=== PATIENT | female | born 1990 | race Two or more races ===

== ENCOUNTER 2020-09-19 10:40 | Inpatient (IN) | payer SELFPAY ==
[~2020-09-19 10:40] MED LIST: ROCURONIUM BROMIDE INJ 50 MG/5 ML VIAL IV ONE
[2020-09-19] MEDS ORDERED: IPRATROPIUM/ALBUTEROL 0.5-2.5 MG/3 ML AMPUL NEB ONE (11:18)
[2020-09-19] MEDS ORDERED: NORMAL SALINE 1000 ML 1,000 ML IV ONE ×2 (11:19→22:06)
[2020-09-19] MEDS ORDERED: METHYLPREDNISOLONE INJ 125 MG/2 ML SDV IV ONE (11:19)
[2020-09-19] MEDS ORDERED: ALBUTEROL SULFATE 0.083% NEB 2.5 MG/3 ML AMPUL NEB ONE ×3 (11:19→17:30)
[2020-09-19] MEDS ORDERED: VECURONIUM BROMIDE INJ 10 MG VIAL IV ONE (11:49)
[2020-09-19] MEDS ORDERED: NORMAL SALINE INJ/PF 0.9% 10 ML SDV ONE (11:49)
[2020-09-19] MEDS ORDERED: GLYCOPYRROLATE 1 MG/5 ML VIAL ONE (11:49)
--- NOTE | 2020-09-19 12:09 | ER Document Report ---
Entered by YOVANY ANNA SCRIBE 09/19/20 1123 Acting as scribe for:PATRICIA MULLER MD ED Respiratory Problem - General Mode of Arrival: Ambulatory Information source: Patient TRAVEL OUTSIDE OF THE [place] IN LAST 30 DAYS: No - Related Data Home Medications: denies <PATRICIA MULLER - Last Filed: 09/19/20 16:59> <ASHLEY FIGUEROA - Last Filed: 09/20/20 01:00> - General Chief Complaint: Breathing Difficulty Stated Complaint: DIFFICULTY BREATHING Time Seen by Provider: 09/19/20 11:09 Notes: This 30 year old female patient presents to the emergency department today with complaints of wheezing with a cough for the last x2-3 days. Patient reports that her shortness of breath did not begin until today. She has been coughing up yellowish-white sputum. She mentions that she recently took a test and it was positive. Her last menstrual period was in July. (PATRICIA MULLER) - Related Data Allergies/Adverse Reactions: No Known Allergies Allergy (Unverified 04/25/12 03:39) Past Medical History - General Information source: Patient - Social History Smoking Status: Current Some Day Smoker Cigarette use (# per day): Yes Chew tobacco use (# tins/day): No Frequency of alcohol use: None Drug Abuse: None Lives with: Family Family History: Reviewed & Not Pertinent Patient has homicidal ideation: No - Medical History Medical History: Negative Past Surgical History: Reports: Hx Abdominal Surgery, Hx Appendectomy - Immunizations Immunizations up to date: Yes <PATRICIA MULLER - Last Filed: 09/19/20 16:59> Review of Systems - Review of Systems Constitutional: No symptoms reported EENT: No symptoms reported Cardiovascular: No symptoms reported Respiratory: See HPI, Cough, Short of breath, Sputum, Wheezing Gastrointestinal: No symptoms reported Genitourinary: No symptoms reported Female Genitourinary: See HPI, Last menstrual period - July, Musculoskeletal: No symptoms reported Skin: No symptoms reported Hematologic/Lymphatic: No symptoms reported Neurological/Psychological: No symptoms reported -: Yes All other systems reviewed and negative <PATRICIA MULLER - Last Filed: 09/19/20 16:59> Physical Exam <PATRICIA MULLER - Last Filed: 09/19/20 16:59> - Vital signs Vitals: Temp Pulse Resp BP Pulse Ox 97.7 F 110 H 20 127/76 H 92 09/19/20 10:45 09/19/20 10:45 09/19/20 10:45 09/19/20 10:45 09/19/20 10:45 - Notes Notes: Physical Exam: General: Alert, appears quite dyspneic. Able to speak a few words between breaths. HEENT: Normocephalic. Atraumatic. PERRL. Extraocular movements intact. Oropharynx clear. Neck: Supple. Non-tender. Respiratory: Moderate respiratory distress. Audible wheezing. Retracting. Dyspneic. Tachypneic. High-pitched wheezes are noted in the upper lungs bilaterally, with some rhonchi noted in the lower lung sifuentes bilaterally. Cardiovascular: Regular tachycardia rate and rhythm. Abdominal: Normal Inspection. Non-tender. No distension. Normal Bowel Sounds. Back: No gross abnormalities. Extremities: Moves all four extremities. Upper extremities: Normal inspection. Normal ROM. Lower extremities: Normal inspection. No edema. Normal ROM. Neurological: Normal cognition. AAOx4. Normal speech. Psychological: Anxious. Skin: Warm. Dry. Normal color. (PATRICIA MULLER) Course - Laboratory Results Result Diagrams: 09/19/20 12:08 09/19/20 12:08 Critical Laboratory Results Reviewed: Yes Attending or Supervising Physician who Reviewed Labs: PATRICIA MULLER - Leukocytosis - Radiology Results Critical Radiology Results Reviewed: No Critical Results - EKG Interpretation by [place] EKG shows normal: Sinus rhythm, Gibson, Intervals, QRS Complexes, ST-T Waves Rate: Tachycardia - 115 P Waves: CHON - Consults Dr. Torres Time consulted: 15:42 Consulted provider: will come to ER - Requests by discussed the patient with TAPE FASTENER MACHINE OPERATOR station cleaning porter to see if they have any ideas about inducing the patient symptoms. Dr. Oconnell Time consulted: 15:50 Consulted provider: other - Discussed case with Dr. Oconnell, he could not think of anything related this early on that would contribute to the patient's symptoms. - Transfer of Care Care transferred to following provider: Dr. Figueroa <PATRICIA MULLER - Last Filed: 09/19/20 16:59> - Laboratory Results Result Diagrams: 09/19/20 12:08 09/19/20 12:08 <ASHLEY FIGUEROA M - Last Filed: 09/20/20 01:00> - Re-evaluation Re-evalutation: 09/19/20 12:55 The patient was moved from pod for to the main ED due to her symptoms. I reevaluated her and found that her oxygen saturations were remaining at 95% on 2 L nasal cannula. She is some what anxious. There continues to be high-pitched wheezes heard best in the upper airways, and some rhonchi in the lower airways when I have the patient cough. She has had minimal response to DuoNeb and albuterol treatments. I had the nurse give the patient a racemic epinephrine treatment. And after that her heart rate had actually come down from the 110 range to about 95. At this time she remains to be quite anxious, diaphoretic, and is hyperventilating with pursed lips expiratory phase. We will try some Ativan to help her with her anxiety. Chest x-ray does not show acute cardiopulmonary process. 09/19/20 14:39 Patient reports that her breathing feels much better with the BiPAP on. She can notice improvement due to the back pressure it is providing. Oxygen saturations are at 100%. (PATRICIA MULLER) 09/19/20 18:47 Care of this patient has been turned over to me pending admission. In short this is an acutely short of breath 30-year-old female. Dr. Gonzalez and Dr. Torres came to evaluate the patient. They agree that she is an ICU patient. They are concerned that they do not a clear etiology of her symptoms. Decision from them is to order a CTA of the neck. Based on this, I did decide to add a CTA of the chest to evaluate for possible pulmonary embolus as well. On p reliminary evaluation by me, I am concerned about the upper airway in this patient. I am concerned about the possibility of epiglottitis, so antibiotic coverage and cultures are ordered. I did order Unasyn and blood cultures. I went into evaluate the patient. She is anxious appearing but not actively stridorous. She has already received steroids. Awaiting formal report and will reevaluate. 09/19/20 19:49 CT of the neck and chest were read as unremarkable. I did see findings consistent with possible edema at the level of the cords. I discussed this with Dr. Moore. He states that given different times of the breathing cycle, as well as swallowing, this can be a normal appearance. He also states, however, that clinical correlation would be advisable, and it is certainly possible that she has edema direct visualization would be recommended. I did discuss this with the PUPIL PERSONNEL WORKER. The patient and the mother were also kept abreast of findings. We discussed possible intubation and the patient is completely on board. She would like to be intubated is concerned about her difficulty breathing. It is agreed that the patient would be best intubated in the OR in a controlled setting. 09/19/20 21:29 Patient back from the operating room. Per KLARISSA Dumont, cords grossly normal, patient intubated without difficulty. Have ordered sedation. At this point I do not have a clear etiology for this patient's respiratory failure. We will continue to monitor. 09/20/20 00:59 Please see my ED note for the remainder of the patient's ED course and disposition. (ASHLEY FIGUEROA) - Vital Signs Vital signs: Temp Pulse Resp BP Pulse Ox 98.8 F 110 H 16 156/101 H 97 09/19/20 22:30 09/19/20 10:45 09/19/20 22:30 09/19/20 22:30 09/19/20 22:30 - Laboratory Results Laboratory Results Interpreted: 09/19/20 09/19/20 09/19/20 12:08 12:08 16:00 WBC 19.8 H Lymph % (Auto) 10.3 L Absolute Neuts (auto) 16.5 H Seg Neutrophils % 83.5 H Carbonic Acid 1.38 H ABG pH 7.30 L ABG pCO2 46.0 H BUN 6 L Glucose 135 H C-Reactive Protein 59.1 H Beta HCG, Quant 90042.00 H - Radiology Results Radiology Results Interpreted: 09/19/20 12:54 Chest x-ray does not show acute cardiopulmonary process. (PATRICIA MULLER) - Transfer of Care Notes: 09/19/20 16:57 Pending evaluation by the electric dolly operator to decide which service the patient will be admitted to and to decide what bed assignment she will receive. (PATRICIA MULLER) Critical Care Note - Critical Care Note Total time excluding time spent on procedures (mins): 40 <PATRICIA MULLER - Last Filed: 09/19/20 16:59> - Critical Care Note Comments: At least 40 minutes spent evaluating patient, getting history and physical. Instituting therapies and reevaluating for effectiveness of treatment. Time spent consulting with multiple admitting providers for final disposition. (PATRICIA MULLER) Discharge <PATRICIA MULLER - Last Filed: 09/19/20 16:59> - Discharge Admitting Provider: Carlos (Carboy Filler) Unit Admitted: ICU <ASHLEY FIGUEROA - Last Filed: 09/20/20 01:00> - Discharge Clinical Impression: Acute bronchitis with bronchospasm, Tachypnea, Acute hypercapnic respiratory failure Asthmaticus, status Qualifiers: Asthma severity: severe Asthma persistence: persistent Qualified Code(s): J45.52 - Severe persistent asthma with status asthmaticus Condition: Fair Disposition: ADMITTED INPATIENT I personally performed the services described in the documentation, reviewed and edited the documentation which was dictated to the scribe in my presence, and it accurately records my words and actions.
[2020-09-19] MEDS ORDERED: RACEPINEPHRINE HCL 2.25% NEB 0.5 ML AMPUL NEB ONE ×2 (12:10→17:32)
--- NOTE | 2020-09-19 12:17 | RADIOLOGY REPORT (SQ) ---
EXAM DESCRIPTION: CHEST SINGLE VIEW IMAGES COMPLETED DATE/TIME: 09/19/2020 12:05 pm REASON FOR STUDY: Bronchitis with bronchospasm COMPARISON: None. EXAM PARAMETERS: NUMBER OF VIEWS: One view. TECHNIQUE: Single frontal radiographic view of the chest acquired. RADIATION DOSE: NA LIMITATIONS: None. FINDINGS: LUNGS AND PLEURA: No opacities, masses or pneumothorax. No pleural effusion. MEDIASTINUM AND HILAR STRUCTURES: No masses. Contour normal. HEART AND VASCULAR STRUCTURES: Heart normal in size. Normal vasculature. BONES: No acute findings. HARDWARE: None in the chest. OTHER: No other significant finding. IMPRESSION: NO ACUTE RADIOGRAPHIC FINDING IN THE CHEST. TECHNICAL DOCUMENTATION: JOB ID: [id number] 2010 [employer]- All Rights Reserved Reading location - IP/workstation name: [email or web address]
[2020-09-19 12:20] LABS: ABSOLUTE MONOCYTES (AUTO) 0.7 10^3/uL (0.1-1.4); HEMATOCRIT 39.7 % (36.0-47.0); MEAN CORPUSCULAR HEMOGLOBIN 30.6 pg (27.0-33.4); TOTAL CELLS COUNTED % (AUTO) 100 %
[2020-09-19 12:28] LABS: ABSOLUTE BASOPHILS # (AUTO) 0.1 10^3/uL (0.0-0.2); ABSOLUTE EOSINOPHILS # (AUTO) 0.3 10^3/uL (0.0-0.6); ABSOLUTE NEUT (AUTO) 16.5 10^3/uL (1.7-8.2); BASOPHILS % (AUTO) 0.7 % (0-2); EOSINOPHILS % (AUTO) 1.7 % (0-6); HEMOGLOBIN 13.8 g/dL (12.0-15.5); LYMPHOCYTES % (AUTO) 10.3 % (13-45); MEAN CORPUSCULAR HGB CONC 34.7 g/dL (32.0-36.0); MEAN CORPUSCULAR VOLUME 88 fl (80-97); MONOCYTES % (AUTO) 3.8 % (3-13); PLATELET COUNT 303 10^3/uL (150-450); RED CELL DISTRIBUTION WIDTH 13.4 % (11.5-14.0); SEGMENTED NEUTROPHILS % (AUTO) 83.5 % (42-78); WHITE BLOOD COUNT 19.8 10^3/uL (4.0-10.5)
[2020-09-19 12:44] LABS: ALBUMIN 3.8 g/dL (3.5-5.0); ALKALINE PHOSPHATASE 81 U/L (38-126); ANION GAP 10 (5-19); ASPARTATE AMINO TRANSFERASE 23 U/L (14-36); BILIRUBIN,DIRECT 0.3 mg/dL (0.0-0.4); BILIRUBIN,TOTAL 0.9 mg/dL (0.2-1.3); BLOOD UREA NITROGEN 6 mg/dL (7-20); C-REACTIVE PROTEIN 59.1 mg/L (<10.0); CARBON DIOXIDE 24 mmol/L (22-30); CHLORIDE 103 mmol/L (98-107); GLUCOSE 135 mg/dL (75-110); TOTAL PROTEIN 6.5 g/dL (6.3-8.2)
[2020-09-19] MEDS ORDERED: LORAZEPAM INJ 2 MG/1 ML VIAL IV ONE ×2 (12:53→18:58)
[2020-09-19] MEDS ORDERED: MAGNESIUM SULFATE/D5W 1 GM/100 ML RTUPB IV ONE (15:53)
[2020-09-19] MEDS: MAGNESIUM SULFATE/D5W 1 GM/100 ML RTUPB IV SCH ×2 (16:09→17:10)
[2020-09-19 16:37] LABS: ARTERIAL BLOOD BASE EXCESS -4.2 mmol/L; ARTERIAL BLOOD H2CO3 1.38 mmol/L (1.05-1.35); ARTERIAL BLOOD HCO3 22.3 mmol/L (20-24); ARTERIAL BLOOD O2 SATURATION 95.7 % (94-98); ARTERIAL BLOOD TOTAL CO2 23.7 mmol/L (21-25)
[2020-09-19 16:38] LABS: ARTERIAL BLOOD FIO2 45%
[2020-09-19] MEDS ORDERED: DIPHENHYDRAMINE HCL 50 MG/ML VIAL IV ONE (17:47)
--- NOTE | 2020-09-19 17:57 | PDOC CONSULTATION ---
Consultation Consult Date: 09/19/20 Attending physician:: PATRICIA MULLER Provider Consulted: REJI CARSON Consult reason:: difficulty breathing History of Present Illness Admission Date/PCP: 09/19/20 16:47 Patient complains of: SOB History of Present Illness: SARAH DANIELS is a 30 year old female, 8 weeks AOG, she is a current smoker 2-3 cig/day, no prior hx of asthma who came in the ED today due to difficulty of breathing. Patient is on bipap and she is very SOB so history is limited. 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 She said that the SOB will improve when she does pursed breathing. She stated that it is worse breathing in than breathing out. Her SOB got progressively worse hence she came to the ED. She denies any history of asthma or prior asthma attack, she does not have any significant cardiac history either. Her mother has Graves Disease however she does not report any personal history of thyroid problem. In the ED, BP 127/76, HR 110, RR 34, T 37, O2 sat 90% on RA, she has pursed breathing, can only converse with short phrases and has tripod positioning with use of accessory muscles. Per exam she has upper airway wheezing, but she has no tongue swelling. CXR was negative, D dimer normal, EKG sinus tachycardia. Patient was put on BIPAP 45% FIO2 which increased her O2 sat to 97%. She was given solumedrol IV, albuterol nebs and racemic epi nebulization. ICU eval was called because of concern for impending respiratory compromise. The patient is too unstable for IMCU admission and cannot be accepted by hospitalist service for admission on floors. Past Medical History Medical History: None Cardiac Medical History: Reports: None Pulmonary Medical History: Reports: None EENT Medical History: Reports: None Neurological Medical History: Reports: None Endocrine Medical History: Reports: None Renal/ Medical History: Reports: None Malignancy Medical History: Reports: None GI Medical History: Reports: None Musculoskeltal Medical History: Reports: None Skin Medical History: Reports: None Psychiatric Medical History: Reports: None Traumatic Medical History: Reports: None Hematology: Reports: None Infectious Medical History: Reports: None Past Surgical History Past Surgical History: Reports: Appendectomy Social History Information Source: Patient Lives with: Family Smoking Status: Current Some Day Smoker Electronic Cigarette use?: No Family History Family History: Thyroid Disfunction - mother has Graves disease Parental Family History Reviewed: Yes Children Family History Reviewed: Yes Sibling(s) Family History Reviewed.: Yes Medication/Allergy Allergies/Adverse Reactions: No Known Allergies Allergy (Unverified 04/25/12 03:39) Review of Systems Constitutional: PRESENT: fever(s) Eyes: ABSENT: visual disturbances Ears: ABSENT: hearing changes Nose, Mouth, and Throat: PRESENT: sore throat. ABSENT: mouth pain Cardiovascular: PRESENT: dyspnea on exertion. ABSENT: chest pain, palpitations Respiratory: PRESENT: cough, dyspnea Gastrointestinal: PRESENT: hematemesis Physical Exam Vital Signs: Temp Pulse Resp BP Pulse Ox 97.7 F 110 H 34 H 155/86 H 94 09/19/20 10:45 09/19/20 10:45 09/19/20 14:01 09/19/20 14:01 09/19/20 14:01 Intake & Output 09/18/20 09/19/20 09/20/20 06:59 06:59 06:59 Intake Total 1100 Balance 1100 Weight 81.8 kg General appearance: PRESENT: cooperative, severe distress Head exam: PRESENT: atraumatic, normocephalic Eye exam: PRESENT: EOMI, PERRLA Mouth exam: PRESENT: moist Neck exam: PRESENT: full ROM Respiratory exam: PRESENT: accessory muscle use, retraction, symmetrical, tachypnea, wheezes - upper airway Cardiovascular exam: PRESENT: +S1, +S2, tachycardia Pulses: PRESENT: +2 pedal pulses bilateral GI/Abdominal exam: PRESENT: normal bowel sounds, soft. ABSENT: rebound, tenderness Extremities exam: PRESENT: full ROM Musculoskeletal exam: PRESENT: full ROM Neurological exam: PRESENT: alert, awake, oriented to person, oriented to place, oriented to time, oriented to situation Psychiatric exam: PRESENT: normal mood Skin exam: PRESENT: normal color Results Laboratory Results: 09/19/20 12:08 09/19/20 12:08 09/19/20 09/19/20 09/19/20 12:08 12:08 16:00 WBC 19.8 H RBC 4.50 Hgb 13.8 Hct 39.7 MCV 88 MCH 30.6 MCHC 34.7 RDW 13.4 Plt Count 303 Seg Neutrophils % 83.5 H Carbonic Acid 1.38 H HCO3/H2CO3 Ratio 16:1 ABG pH 7.30 L ABG pCO2 46.0 H ABG pO2 87.0 ABG HCO3 22.3 ABG O2 Saturation 95.7 ABG Base Excess -4.2 FiO2 45% Sodium 137.3 Potassium 4.0 Chloride 103 Carbon Dioxide 24 Anion Gap 10 BUN 6 L Creatinine 0.72 Est GFR ( Amer) > 60 Glucose 135 H Calcium 9.0 Total Bilirubin 0.9 AST 23 Alkaline Phosphatase 81 C-Reactive Protein 59.1 H Total Protein 6.5 Albumin 3.8 Impressions: Chest X-Ray 09/19/20 11:20 IMPRESSION: NO ACUTE RADIOGRAPHIC FINDING IN THE CHEST. Assessment and Plan - Diagnosis (1) Acute respiratory failure with hypoxia Is this a current diagnosis for this admission?: Yes Plan: -patient came in with 3 days progressive history of SOB - no prior hx of asthma, or asthma symptoms - +ve use of accessory muscle, can only talk in short phrases, upper airway wheezing - CXR unremarkable - D dimer normal - COVID negative - EKG sinus tachy - ddx: upper airway obstruction goiter or croup, less likely cute asthma attack or PE since dimer is negative. IF suspicion for PE is high then CTA - CT soft tissue of neck ordered to diagnose upper airway obstruction - s/p solumedrol, albuterol, racemic epinephrine, mag sulfate - continue albuterol inhaler q1hr - continue bipap support - she is an impending respiratory failure and is not floor appropriate for floor admission at this time. This was discussed with Dr. Gonzalez and ED provider who agreed that the patient either needs to be transferred or go to the ICU. (2) Qualifiers: Weeks of gestation: 8 weeks Qualified Code(s): Z3A.08 - 8 weeks gestation of Is this a current diagnosis for this admission?: Yes Plan: - 8 weeks AOG - no prior hx of pulmonary issues - Plan Summary Summary: Patient is not appropriate for IMCU admission due to impending respiratory failure. Discussed with Dr. Gonzalez and ED providers. >35 minutes is spent in critical care for this patient. - Time Time Spent with patient: 35 or more minutes Smoking Cessation Education: 3 to 10 minutes Medications reviewed and adjusted accordingly: Yes Anticipated Discharge Disposition: Tertiary Anticipated Discharge Timeframe: within 24 hours
[2020-09-19] MEDS ORDERED: AMPICILLIN SOD/SULBACTAM 3 GM VIAL IV ONE (18:46)
--- NOTE | 2020-09-19 18:51 | RADIOLOGY REPORT (SQ) ---
EXAM DESCRIPTION: CTA CHEST IMAGES COMPLETED DATE/TIME: 09/19/2020 6:37 pm REASON FOR STUDY: dyspnea, eval for PE COMPARISON: None. TECHNIQUE: CT scan of the chest performed using helical scanning technique with dynamic intravenous contrast injection. Images reviewed with lung, soft tissue and bone windows. Reconstructed coronal and sagittal MPR images reviewed. Additional 3 dimensional post-processing performed to develop Maximal Intensity Projection images (ME P). All images stored on PACS. All CT scanners at this facility use dose modulation, iterative reconstruction, and/or weight based d osing when appropriate to reduce radiation dose to as low as reasonably achievable (ALARA). [facility]: Dose Right [facility]: CareDose [facility]: Dose Right [facility]: Teradose 4D [facility]: [employer]CS Mobile CONTRAST TYPE AND DOSE: contrast/concentration: Isovue 350.00 mmol/ml; Total Contrast Delivered: 75. 0 ml; Total Saline Delivered: 55.2 ml Contrast bolus adequate for pulmonary arteries and aorta. RENAL FUNCTION: BUN 6 creatinine 0.72 RADIATION DOSE: CT Rad equipment meets quality standard of care and radiation dose reduction techniq ues were employed. CTDIvol: 19.8 - 29.8 mGy. DLP: 1089 mGy-cm. . LIMITATIONS: None. FINDINGS: LUNGS AND PLEURA: There are some very faintly defined ground-glass infiltrates in each danuta g. No pleural effusion. No mass. AORTA AND GREAT VESSELS: No aneurysm. No dissection. HEART: No pericardial effusion. No significant coronary artery calcifications. PULMONARY ARTERIES: No emboli visualized in the main pulmonary arteries or the segmental branches. HILAR AND MEDIASTINAL STRUCTURES: No identified masses or abnormal nodes. HARDWARE: None in the chest. UPPER ABDOMEN: No significant findings. Limited exam. THYROID AND OTHER SOFT TISSUES: No masses. No adenopathy. BONES: No acute or significant finding. 3D MIPS: Confirm above findings. OTHER: No other significant finding. IMPRESSION: 1. There are very faintly defined ground-glass infiltrates in each lung. Cannot exclud e an atypical infectious/ inflammatory process. 2. There is no pulmonary embolus. There is no aortic aneurysm or dissection. COMMENT: Quality ID # [id number]: Final reports with documentation of one or more dose reduction techniques (e.g., Automated exposure control, adjustment of the mA and/or kV according to patient size, use of iterative reconstruction technique) TECHNICAL DOCUMENTATION: JOB ID: [id number] 2010 [employer]- All Rights Reserved Reading location - IP/workstation name: [email or web address]
--- NOTE | 2020-09-19 18:57 | RADIOLOGY REPORT (SQ) ---
EXAM DESCRIPTION: CT SOFT TISSUE NECK WITHOUT IMAGES COMPLETED DATE/TIME: 09/19/2020 6:37 pm REASON FOR STUDY: upper airway compromise COMPARISON: None. TECHNIQUE: Noncontrast scanning from skull base through lung apices with review of bone, soft tissue and lung windows. Reconstructed coronal and sagittal MPR images reviewed. All images stored on PAC S. All CT scanners at this facility use dose modulation, iterative reconstruction, and/or weight based d osing when appropriate to reduce radiation dose to as low as reasonably achievable (ALARA). [facility]: Dose Right [facility]: CareDose [facility]: Dose Right [facility]: Teradose 4D [facility]: [employer] RADIATION DOSE: CT Rad equipment meets quality standard of care and radiation dose reduction techniq ues were employed. CTDIvol: 23.3 mGy. DLP: 634 mGy-cm. mGy. LIMITATIONS: Lack of intravenous contrast. FINDINGS: SKULL BASE: Intact. MAJOR SALIVARY GLANDS: No solid or cystic masses. No inflammatory changes. LYMPHADENOPATHY: No adenopathy. MUCOSAL MASSES OR ASYMMETRY: No mucosal masses or asymmetry. LARYNX/CORDS: No abnormal findings. LUNG APICES: Clear. BONES: Intact. THYROID: Normal size. No masses. PARANASAL SINUSES: Clear. OTHER: No other significant finding. IMPRESSION: No acute finding in the neck. Study slightly limited by lack of contrast. TECHNICAL DOCUMENTATION: JOB ID: [id number] Quality ID # [id number]: Final reports with documentation of one or more dose reduction techniques (e.g., Au tomated exposure control, adjustment of the mA and/or kV according to patient size, use of iterative reconstruction technique) 2010 [employer]- All Rights Reserved Reading location - IP/workstation name: [email or web address]
--- NOTE | 2020-09-19 19:59 | EKG REPORT ---
SEVERITY:- ABNORMAL ECG - SINUS TACHYCARDIA RIGHT ATRIAL ABNORMALITY : Confirmed by: Quyen May MD 19-Sep-2020 19:57:41
[2020-09-19] MEDS ORDERED: KETAMINE HCL INJ 500 MG/10 ML VIAL ONE (20:13)
[2020-09-19] MEDS ORDERED: MIDAZOLAM 2 MG/2 ML INJ ONE ×2 (20:13→20:21)
[2020-09-19] MEDS ORDERED: FENTANYL CITRATE INJ/PF 100 MCG/2 ML AMPUL ONE (20:13)
[2020-09-19] MEDS ORDERED: DEXMEDETOMIDINE INJ 80 MCG/20 ML VIAL IV ONE (20:14)
[2020-09-19] MEDS ORDERED: PROPOFOL INJ 200 MG/20 ML VIAL IV ONE (20:14)
[2020-09-19] MEDS: PROPOFOL 1,000 MG/100 ML INFUS..BTL IV PRN (21:35)
[2020-09-19] MEDS ORDERED: ROCURONIUM BROMIDE INJ 50 MG/5 ML VIAL IV ONE (22:05)
[2020-09-19] MEDS ORDERED: DEXTROSE 5%-1/2 NORMAL SALINE 1,000 ML IV ONE (22:09)
--- NOTE | 2020-09-19 22:22 | RADIOLOGY REPORT (SQ) ---
EXAM DESCRIPTION: Site: CHEST SINGLE VIEW RP: XR CHEST 1 VIEW CLINICAL HISTORY: 30 years Female; ETT and OGT placement; lower abdominal pain FINDINGS: AP portable chest at 2151. Since this morning at 1153, endotracheal tube has been placed, tip 4.5 cm above syed. Enteric tube extends into the stomach. Lungs are well-inflated. No pneumothorax or pleural effusion. No mediastinal widening or shift. IMPRESSION: Intubated Enteric tube tip in the stomach
--- NOTE | 2020-09-19 22:30 | ER Document Report ---
ED General - General Chief Complaint: Breathing Difficulty Stated Complaint: DIFFICULTY BREATHING Time Seen by Provider: 09/19/20 11:09 Mode of Arrival: Ambulatory TRAVEL OUTSIDE OF THE [place] IN LAST 30 DAYS: No - HPI Notes: This is a G3, P2 female who presents to the emergency department for evaluation of shortness of breath. She was initially seen by my colleague. The patient had had a cough for a few days, occasionally productive of sputum. She was complaining of some low-grade fevers, T-max of 100.2. She developed more acute shortness of breath today. Upon being seen by my colleague, she had significant pursed lip breathing and increased respiratory effort. ABG showed a respiratory acidosis, and ICU and medicine teams have been consulted. There was agreement a mongst consulting physicians that the patient should have an ICU bed, but there are no ICU beds available at this facility at this time. Patient denies pain of any sort, admits to feeling anxious. I evaluated her she did have BiPAP in place. - Related Data Allergies/Adverse Reactions: No Known Allergies Allergy (Unverified 04/25/12 03:39) Home Medications: denies Past Medical History - General Information source: Patient - Social History Smoking Status: Current Some Day Smoker Cigarette use (# per day): Yes Chew tobacco use (# tins/day): No Frequency of alcohol use: None Drug Abuse: None Lives with: Family Family History: Thyroid Disfunction - mother has Graves disease Patient has homicidal ideation: No - Medical History Medical History: Negative - Past Medical History Cardiac Medical History: Reports: None Pulmonary Medical History: Reports: None EENT Medical History: Reports: None Neurological Medical History: Reports: None Endocrine Medical History: Reports: None Renal/ Medical History: Reports: None Malignancy Medical History: Reports: None GI Medical History: Reports: None Musculoskeletal Medical History: Reports None Skin Medical History: Reports None Psychiatric Medical History: Reports: None Traumatic Medical History: Reports: None Infectious Medical History: Reports: None Past Surgical History: Reports: Hx Abdominal Surgery, Hx Appendectomy - Immunizations Immunizations up to date: Yes Review of Systems - Review of Systems Constitutional: See HPI EENT: No symptoms reported Cardiovascular: No symptoms reported Respiratory: See HPI Gastrointestinal: No symptoms reported Genitourinary: No symptoms reported Female Genitourinary: See HPI Musculoskeletal: No symptoms reported Skin: No symptoms reported Neurological/Psychological: No symptoms reported Physical Exam - Vital signs Vitals: Temp Pulse Resp BP Pulse Ox 97.7 F 110 H 20 127/76 H 92 09/19/20 10:45 09/19/20 10:45 09/19/20 10:45 09/19/20 10:45 09/19/20 10:45 - Notes Notes: This is a 30-year-old female who appears her stated age in a moderate amount of distress. She has BiPAP on, is intermittently tearful. She remains tachypneic and has intermittent pursed lip breathing. Vital signs reviewed, please refer to chart. Head is normocephalic, atraumatic. Pupils equal round, reactive to light. Neck is supple without meningismus. Heart is regular rate and rhythm. Lungs reveal anterior expiratory wheezes. Abdomen is soft, nontender, normoactive bowel sounds throughout. Extremities without cyanosis, clubbing. Posterior calves are nontender. Peripheral pulses are equal. Skin is warm and dry. Patient is awake, alert, cooperative with examiner. Course - Re-evaluation Re-evalutation: 09/19/20 22:24 Care of this patient was turned over to me at the beginning of my shift. Below are course notes from general provider's notes, placed by myself, copied and pasted for the sake of completion. 09/19/20 18:47 Care of this patient has been turned over to me pending admission. In short this is an acutely short of breath 30-year-old female. Dr. Gonzalez and Dr. Torres came to evaluate the patient. They agree that she is an ICU patient. Based on interview Dr. Mcnamara is concerned that this is an upper airway issue, was concerned about the possibility of epiglottitis. They are concerned that they do not a clear etiology of her symptoms. Decision from them is to order a CTA of the neck. Based on this, I did decide to add a CTA of the chest to evaluate for possible pulmonary embolus as well. On preliminary evaluation by me, I am concerned about the upper airway in this patient. I am concerned about the possibility of epiglottitis, so antibiotic coverage and cultures are ordered. I did order Unasyn and blood cultures. I went into evaluate the patient. She is anxious appearing but not actively stridorous. She has already received steroids. Awaiting formal report and will reevaluate. 09/19/20 19:49 CT of the neck and chest were read as unremarkable. I did see findings consistent with possible edema at the level of the cords. I discussed this with Dr. Moore. He states that given different times of the breathing cycle, as well as swallowing, this can be a normal appearance. He also states, however, that clinical correlation would be advisable, and it is certainly possible that she has edema direct visualization would be recommended. I did discuss this with the TILE SETTER SUPERVISOR. The patient and the mother were also kept abreast of findings. We discussed possible intubation and the patient is completely on board. She would like to be intubated is concerned about her difficulty breathing. It is agreed that the patient would be best intubated in the OR in a controlled setting. 09/19/20 21:29 Patient back from the operating room. Per KLARISSA Dumont, cords grossly normal, patient intubated without difficulty. Have ordered sedation. At this point I do not have a clear etiology for this patient's respiratory failure. We will continue to monitor. 09/19/20 22:24 Patient sedated, was continuing to have issues with the tube. Rocuronium ordered. I will contact [facility] for possible transfer, as this patient does seem medically complex and we did have a clear etiology for her symptoms. 09/19/20 23:[address] Odom, [facility] MICU attending. She agrees that it is reasonable to send the patient to a higher level of care, but regressed to states she does not have any medical ICU beds for non-Covid patients at this time. Patient tolerated the rocuronium well, will place her on a rocuronium drip. 09/20/20 00:13 Repeat ABG shows a pH is 7.15 with significant CO2 retention acutely. I have increased her respiratory rate and tidal volume. I am unsure as to who placed orders for initial ventilator settings. There are no beds available for this patient. I will contact ICU for a formal consultation. 09/20/20 00:47 Patient is not tolerating a tidal volume as ordered, respiratory therapy will come down on tidal volume. Ventilator settings will be changed by Melvin tabor, physician clinical education assistant. Patient will be admitted to the ICU. - Vital Signs Vital signs: Temp Pulse Resp BP Pulse Ox 98.7 F 110 H 24 H 110/57 L 94 09/20/20 01:15 09/19/20 10:45 09/20/20 01:15 09/20/20 01:15 09/20/20 01:15 - Laboratory Results Result Diagrams: 09/19/20 12:08 09/19/20 12:08 Laboratory Results Interpreted: 09/19/20 09/19/20 09/19/20 12:08 12:08 16:00 WBC 19.8 H Lymph % (Auto) 10.3 L Absolute Neuts (auto) 16.5 H Seg Neutrophils % 83.5 H Carbonic Acid 1.38 H ABG pH 7.30 L ABG pCO2 46.0 H BUN 6 L Glucose 135 H C-Reactive Protein 59.1 H Beta HCG, Quant 23184.00 H Critical Laboratory Results Reviewed: No Critical Results - Radiology Results Radiology Results Interpreted: 09/19/20 22:27 09/19/20 12:08 09/19/20 12:08 MCV 88 fl (80-97) 09/19/20 12:08 MCH 30.6 pg (27.0-33.4) 09/19/20 12:08 MCHC 34.7 g/dL (32.0-36.0) 09/19/20 12:08 RDW 13.4 % (11.5-14.0) 09/19/20 12:08 Seg Neutrophils % 83.5 % (42-78) H 09/19/20 12:08 Carbonic Acid 1.38 mmol/L (1.05-1.35) H 09/19/20 16:00 HCO3/H2CO3 Ratio 16:1 09/19/20 16:00 ABG pH 7.30 (7.35-7.45) L 09/19/20 16:00 ABG pCO2 46.0 mmHg (35-45) H 09/19/20 16:00 ABG pO2 87.0 mmHg (80-100) 09/19/20 16:00 ABG HCO3 22.3 mmol/L (20-24) 09/19/20 16:00 ABG O2 Saturation 95.7 % (94-98) 09/19/20 16:00 ABG Base Excess -4.2 mmol/L 09/19/20 16:00 FiO2 45% 09/19/20 16:00 Chloride 103 mmol/L (98-107) 09/19/20 12:08 Carbon Dioxide 24 mmol/L (22-30) 09/19/20 12:08 Anion Gap 10 (5-19) 09/19/20 12:08 Est GFR ( Amer) > 60 (>60) 09/19/20 12:08 Glucose 135 mg/dL (75-110) H 09/19/20 12:08 Calcium 9.0 mg/dL (8.4-10.2) 09/19/20 12:08 Total Bilirubin 0.9 mg/dL (0.2-1.3) 09/19/20 12:08 AST 23 U/L (14-36) 09/19/20 12:08 Alkaline Phosphatase 81 U/L (38-126) 09/19/20 12:08 C-Reactive Protein 59.1 mg/L (<10.0) H 09/19/20 12:08 Total Protein 6.5 g/dL (6.3-8.2) 09/19/20 12:08 Albumin 3.8 g/dL (3.5-5.0) 09/19/20 12:08 09/19/20 12:08 Troponin I < 0.012 09/19/20 22:[address] 09/19/20 00:00 IMPRESSION: No acute finding in the neck. Study slightly limited by lack of contrast. Chest X-Ray 09/19/20 11:20 IMPRESSION: NO ACUTE RADIOGRAPHIC FINDING IN THE CHEST. Critical Radiology Results Reviewed: No Critical Results - EKG Interpretation by Me Additional EKG results interpreted by me: 09/19/20 22:29 Sinus tachycardia 3 115 bpm. Normal axis and intervals. No acute ST changes concerning for ischemia or infarction. Critical Care Note - Critical Care Note Total time excluding time spent on procedures (mins): 55 Discharge - Discharge Clinical Impression: Acute bronchitis with bronchospasm, Tachypnea, Acute hypercapnic respiratory failure Asthmaticus, status Qualifiers: Asthma severity: severe Asthma persistence: persistent Qualified Code(s): J45.52 - Severe persistent asthma with status asthmaticus Condition: Fair Disposition: ADMITTED INPATIENT Admitting Provider: Carlos (Salesperson Art [employer]) - LARISSA Barnard Unit Admitted: ICU
[2020-09-19 22:46] LABS: APPEARANCE,URINE CLEAR; BILIRUBIN,URINE NEGATIVE (NEGATIVE); COLOR,URINE YELLOW; GLUCOSE, URINE 50 mg/dL (NEGATIVE); KETONES,URINE TRACE mg/dL (NEGATIVE); LEUKOCYTE ESTERASE,URINE NEGATIVE (NEGATIVE); NITRITE,URINE NEGATIVE (NEGATIVE); PROTEIN,URINE 100 mg/dL (NEGATIVE); URINE SPECIFIC GRAVITY 1.055; UROBILINOGEN,URINE NEGATIVE mg/dL (<2.0)
[2020-09-19] MEDS ORDERED: NORMAL SALINE 500 ML with ROCURONIUM BROMIDE 500 MG IV PRN ×2 (23:06)
[2020-09-19 23:22] LABS: ARTERIAL BLOOD BASE EXCESS -6.5 mmol/L; ARTERIAL BLOOD H2CO3 2.07 mmol/L (1.05-1.35); ARTERIAL BLOOD HCO3 23.6 mmol/L (20-24); ARTERIAL BLOOD O2 SATURATION 96.2 % (94-98); ARTERIAL BLOOD PCO2 68.9 mmHg (35-45); ARTERIAL BLOOD TOTAL CO2 25.7 mmol/L (21-25)
[2020-09-19 23:24] LABS: ARTERIAL BLOOD FIO2 60%; ARTERIAL BLOOD PH 7.15 (7.35-7.45)
[2020-09-20] MEDS ORDERED: ROCURONIUM BROMIDE INJ 50 MG/5 ML VIAL IV ONE (00:35)
[2020-09-20] MEDS ORDERED: DEXTROSE 50%-WATER 25 GM/50 ML DISP.SYRIN IV PRN ×2 (01:36)
[2020-09-20] MEDS ORDERED: DEXTROSE 40% GEL 15 GM TUBE PO PRN ×2 (01:36)
[2020-09-20] MEDS ORDERED: GLUCAGON,HUMAN RECOMB 1 MG INJ SUBCUT PRN (01:36)
[2020-09-20] MEDS: MAGNESIUM SULFATE/D5W 1 GM/100 ML RTUPB IV SCH ×2 (01:42→03:06)
[2020-09-20] MEDS: PROPOFOL 1,000 MG/100 ML INFUS..BTL IV PRN ×8 (02:30→21:21)
[2020-09-20 02:37] LABS: URINE AMPHETAMINES SCREEN NEGATIVE; URINE BARBITURATES SCREEN NEGATIVE; URINE METHADONE SCREEN NEGATIVE; URINE PHENCYCLIDINE SCREEN NEGATIVE
[2020-09-20 02:42] LABS: URINE BENZODIAZEPINES SCREEN UNCONFIRMED POSITIVE; URINE COCAINE SCREEN UNCONFIRMED POSITIVE; URINE MARIJUANA (THC) SCREEN UNCONFIRMED POSITIVE
--- NOTE | 2020-09-20 02:54 | CRITICAL CARE ADMISSION REPORT ---
HPI Date:: 09/20/20 Time:: 02:25 Reason for ICU Reason:: respiratory failure with hypercarbia Admission Date/Time & PCP: Admission Date/Time: 09/19/20 16:47 Primary Care Provider: admited for Dr. Gonzalez HPI: SARAH DANIELS is a 30 year old female, 8 weeks AOG, she is a current smoker 2-3 cig/day, no prior hx of asthma who came in the ED today due to difficulty of breathing. Patient is on bipap and she is very SOB so history is limited. 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 She said that the SOB will improve when she does pursed breathing. She stated that it is worse breathing in than breathing out. Her SOB got progressively worse hence she came to the ED. She denies any history of asthma or prior asthma attack, she does not have any significant cardiac history either. Her mother has Graves Disease however she does not report any personal history of thyroid problem. The patient has had recent travel to [place] returning 08/27/2020. The patients respiratory status continue to decline resulting in intubtion which was performed in the OR by the anesthesia team due to concerns of epiglotitis. Per the intubating providers cords were normal and edmatous. The patient did have ground galss opacity on chest CT however, her covid 19 was negative. The repeat gas post intubation results remained acidosis with elevated CO2. Critical was consulted for admission and management of this patient. - Diagnosis/Plan (2) Acute respiratory failure with hypoxia Is this a current diagnosis for this admission?: Yes Plan: steroids and machanical vent support (3) Asthmaticus, status Qualifiers: Asthma severity: severe Asthma persistence: persistent Qualified Code(s): J45.52 - Severe persistent asthma with status asthmaticus Is this a current diagnosis for this admission?: Yes Plan: steroids and vent support (4) Qualifiers: Weeks of gestation: 8 weeks Qualified Code(s): Z3A.08 - 8 weeks gestation of Is this a current diagnosis for this admission?: No (5) Tachypnea Is this a current diagnosis for this admission?: Yes Plan: mechanical vent support Past Medical History Cardiac Medical History: Reports: None Pulmonary Medical History: Reports: Asthma EENT Medical History: Reports: None Neurological Medical History: Reports: None Endocrine Medical History: Reports: None Renal/ Medical History: Reports: None Malignancy Medical History: Reports: None GI Medical History: Reports: None Musculoskeltal Medical History: Reports: None Skin Medical History: Reports: None Psychiatric Medical History: Reports: None Traumatic Medical History: Reports: None Hematology: Reports: None Infectious Medical History: Reports: None Past Surgical History Past Surgical History: Reports: Appendectomy Social/Family History - Social History Lives with: Family Smoking Status: Current Every Day Smoker - Family History Family History: Other - unable to obtain intubated and ssedated - Medication/Allergies Home Medications: No Home Medications 09/19/20 Allergies/Adverse Reactions: No Known Allergies Allergy (Unverified 04/25/12 03:39) Review of Systems ROS unobtainable: Due to endotracheal tube Physical Exam Vital Signs: Temp Pulse Resp BP Pulse Ox 98.7 F 110 H 24 H 135/78 H 100 09/20/20 02:01 09/19/20 10:45 09/20/20 02:01 09/20/20 02:00 09/20/20 02:01 Intake & Output 09/18/20 09/19/20 09/20/20 06:59 06:59 06:59 Intake Total 2402 Balance 2402 Weight 81.8 kg Weight/Height Weight 81.8 kg Height 5 ft 5 in General appearance: PRESENT: severe distress Head exam: PRESENT: atraumatic, normocephalic Eye exam: PRESENT: conjunctiva pink Ear exam: PRESENT: normal external ear exam Mouth exam: PRESENT: dry mucosa Neck exam: PRESENT: full ROM Respiratory exam: PRESENT: decreased breath sounds, wheezes Cardiovascular exam: PRESENT: +S1, +S2 Pulses: PRESENT: normal radial pulses, +2 pedal pulses bilateral GI/Abdominal exam: PRESENT: normal bowel sounds, soft Rectal exam: PRESENT: deferred Extremities exam: PRESENT: full ROM Musculoskeletal exam: PRESENT: full ROM Neurological exam: PRESENT: other - sedated Tubes/Lines: PRESENT: Endotracheal Tube Laboratory/Radiographs Laboratory Results: 09/19/20 12:08 09/19/20 12:08 09/19/20 09/19/20 09/19/20 12:08 12:08 12:08 WBC 19.8 H RBC 4.50 Hgb 13.8 Hct 39.7 MCV 88 MCH 30.6 MCHC 34.7 RDW 13.4 Plt Count 303 Seg Neutrophils % 83.5 H Carbonic Acid HCO3/H2CO3 Ratio ABG pH ABG pCO2 ABG pO2 ABG HCO3 ABG O2 Saturation ABG Base Excess FiO2 Sodium 137.3 Potassium 4.0 Chloride 103 Carbon Dioxide 24 Anion Gap 10 BUN 6 L Creatinine 0.72 Est GFR ( Amer) > 60 Glucose 135 H Calcium 9.0 Magnesium 1.8 Total Bilirubin 0.9 AST 23 Alkaline Phosphatase 81 C-Reactive Protein 59.1 H Total Protein 6.5 Albumin 3.8 Urine Color Urine Appearance Urine pH Ur Specific Cunningham Urine Protein Urine Glucose (UA) Urine Ketones Urine Blood Urine Nitrite Ur Leukocyte Esterase Urine WBC (Auto) Urine RBC (Auto) 09/19/20 09/19/20 09/19/20 16:00 22:20 22:57 WBC RBC Hgb Hct MCV MCH MCHC RDW Plt Count Seg Neutrophils % Carbonic Acid 1.38 H 2.07 H HCO3/H2CO3 Ratio 16:1 11:1 ABG pH 7.30 L 7.15 L* ABG pCO2 46.0 H 68.9 H ABG pO2 87.0 107.0 H ABG HCO3 22.3 23.6 ABG O2 Saturation 95.7 96.2 ABG Base Excess -4.2 -6.5 FiO2 45% 60% Sodium Potassium Chloride Carbon Dioxide Anion Gap BUN Creatinine Est GFR ( Amer) Glucose Calcium Magnesium Total Bilirubin AST Alkaline Phosphatase C-Reactive Protein Total Protein Albumin Urine Color YELLOW Urine Appearance CLEAR Urine pH 5.0 Ur Specific Cunningham 1.055 Urine Protein 100 H Urine Glucose (UA) 50 H Urine Ketones TRACE H Urine Blood NEGATIVE Urine Nitrite NEGATIVE Ur Leukocyte Esterase NEGATIVE Urine WBC (Auto) 1 Urine RBC (Auto) 4 09/19/20 12:08 Troponin I < 0.012 Impressions: Soft Tissue Neck CT 09/19/20 00:00 IMPRESSION: No acute finding in the neck. Study slightly limited by lack of contrast. Chest/Abdomen CTA 09/19/20 17:34 IMPRESSION: 1. There are very faintly defined ground-glass infiltrates in each lung. Cannot exclude an atypical infectious/ inflammatory process. 2. There is no pulmonary embolus. There is no aortic aneurysm or dissection. Chest X-Ray 09/19/20 21:35 IMPRESSION: Intubated Enteric tube tip in the stomach All labs, radiographs, diagnostic studies and EKGs were personally reviewed: Yes In addition, reports of radiographic and diagnostic studies were read: Yes Critical Time Critical Time (minutes): 60 -: The care of a critically ill patient is dynamic. This note represents a static moment in the admission process. Orders and treatments may be given simultaneously and urgently, and time is not insurance service representative of the treatment process. This patient requires Critical Care secondary to life threatening organ or limb dysfunction. Without Critical Care services, the patient is at risk for increased mortality and morbidity.
[2020-09-20 03:13] LABS: ARTERIAL BLOOD BASE EXCESS -3.4 mmol/L; ARTERIAL BLOOD H2CO3 1.39 mmol/L (1.05-1.35); ARTERIAL BLOOD HCO3 22.9 mmol/L (20-24); ARTERIAL BLOOD O2 SATURATION 93.5 % (94-98); ARTERIAL BLOOD PCO2 46.3 mmHg (35-45); ARTERIAL BLOOD PH 7.31 (7.35-7.45); ARTERIAL BLOOD PO2 73.8 mmHg (80-100); ARTERIAL BLOOD TOTAL CO2 24.3 mmol/L (21-25)
[2020-09-20 03:14] LABS: ARTERIAL BLOOD FIO2 45%
[2020-09-20 03:49] LABS: ALBUMIN 3.8 g/dL (3.5-5.0); ALKALINE PHOSPHATASE 86 U/L (38-126); ANION GAP 13 (5-19); ASPARTATE AMINO TRANSFERASE 25 U/L (14-36); BILIRUBIN,DIRECT 0.3 mg/dL (0.0-0.4); BILIRUBIN,TOTAL 0.8 mg/dL (0.2-1.3); BLOOD UREA NITROGEN 6 mg/dL (7-20); CARBON DIOXIDE 21 mmol/L (22-30); CHLORIDE 104 mmol/L (98-107); CHOLESTEROL 131.24 mg/dL (0-200); GLUCOSE 137 mg/dL (75-110); TOTAL PROTEIN 6.5 g/dL (6.3-8.2); TRIGLYCERIDES 134 mg/dL (<150)
[2020-09-20] MEDS: IPRATROPIUM/ALBUTEROL 0.5-2.5 MG/3 ML AMPUL NEB SCH ×5 (03:54→20:43)
[2020-09-20 04:00] LABS: DIRECT LDL 80 mg/dL (<100)
[2020-09-20 04:05] LABS: FREE T4 (FREE THYROXINE) 1.1 ng/dL (0.78-2.19)
[2020-09-20 04:19] LABS: THYROID STIMULATING HORMONE 1.31 uIU/mL (0.47-4.68)
[2020-09-20 04:21] LABS: HEMATOCRIT 37.8 % (36.0-47.0); HEMOGLOBIN 12.7 g/dL (12.0-15.5); MEAN CORPUSCULAR HEMOGLOBIN 29.9 pg (27.0-33.4); MEAN CORPUSCULAR HGB CONC 33.6 g/dL (32.0-36.0); MEAN CORPUSCULAR VOLUME 89 fl (80-97); PLATELET COUNT 264 10^3/uL (150-450); RED BLOOD COUNT 4.24 10^6/uL (3.72-5.28); RED CELL DISTRIBUTION WIDTH 13.3 % (11.5-14.0); WHITE BLOOD COUNT 22.8 10^3/uL (4.0-10.5)
[2020-09-20 04:51] LABS: ABSOLUTE LYMPHOCYTES# (MANUAL) 2.1 10^3/uL (0.5-4.7); BASOPHILS % (MANUAL) 0 % (0-2); EOSINOPHILS % (MANUAL) 0 % (0-6); LYMPHOCYTES % (MANUAL) 9 % (13-45); MONOCYTES % (MANUAL) 0 % (3-13); SEGMENTED NEUTROPHILS % (MAN) 91 % (42-78); TOTAL CELLS COUNTED 100
[2020-09-20 04:52] LABS: OVALOCYTES SLIGHT; POIKILOCYTOSIS SLIGHT; POLYCHROMASIA SLIGHT; TOXIC GRANULATION SLIGHT
[2020-09-20 04:53] LABS: PLATELET COMMENT ADEQUATE; TEAR DROP CELLS SLIGHT
[2020-09-20 05:00] LABS: ARTERIAL BLOOD BASE EXCESS -2.8 mmol/L; ARTERIAL BLOOD H2CO3 1.29 mmol/L (1.05-1.35); ARTERIAL BLOOD HCO3 22.9 mmol/L (20-24); ARTERIAL BLOOD O2 SATURATION 94.2 % (94-98); ARTERIAL BLOOD PCO2 42.9 mmHg (35-45); ARTERIAL BLOOD PH 7.35 (7.35-7.45); ARTERIAL BLOOD PO2 74.3 mmHg (80-100); ARTERIAL BLOOD TOTAL CO2 24.2 mmol/L (21-25)
[2020-09-20 05:03] LABS: ARTERIAL BLOOD FIO2 45%
[2020-09-20 05:15] LABS: APPEARANCE,URINE CLEAR; BILIRUBIN,URINE NEGATIVE (NEGATIVE); COLOR,URINE YELLOW; GLUCOSE, URINE 50 mg/dL (NEGATIVE); KETONES,URINE NEGATIVE (NEGATIVE); LEUKOCYTE ESTERASE,URINE NEGATIVE (NEGATIVE); NITRITE,URINE NEGATIVE (NEGATIVE); PROTEIN,URINE 30 mg/dL (NEGATIVE); URINE SPECIFIC GRAVITY 1.028
[2020-09-20 05:36] LABS: INTERNATIONAL RATION (INR) 1.04; PROTHROMBIN TIME 13.8 SEC (11.4-15.4)
[2020-09-20] MEDS: METHYLPREDNISOLONE INJ 40 MG/1 ML SDV IV SCH ×3 (05:53→21:14)
[2020-09-20] MEDS: HEPARIN SOD (PORCINE) 5,000 UNIT/ML 1 ML VIAL SUBCUT SCH ×3 (05:53→21:14)
[2020-09-20] MEDS: NORMAL SALINE 500 ML with ROCURONIUM BROMIDE 500 MG IV PRN ×4 (07:47→17:14)
--- NOTE | 2020-09-20 13:15 | RADIOLOGY REPORT (SQ) ---
EXAM DESCRIPTION: U/S 1 TRIMESTER/1 GEST W/DOPPLER IMAGES COMPLETED DATE/TIME: 09/20/2020 1:03 pm REASON FOR STUDY: dates and anatomy COMPARISON: None. TECHNIQUE: Transabdominal static and realtime grayscale images acquired of the pelvis. Additional se lected spectral and color Doppler images recorded. All images stored on PACs. bHCG: Not available. CLINICAL DATES: Unknown. LIMITATIONS: None. FINDINGS: FETUS: Single Living intrauterine . ULTRASOUND EGA: 6 week 3 day. ULTRASOUND JULIO: 05/13/2021. EFW: Not applicable less than 20 weeks. CRL: 0.59 cm. FHR: Difficult to visualize. Approximately 101 beats per minute. SURVEY: No visualized anomalies. AMNIOTIC FLUID: Adequate amount. PLACENTA: Not yet developed due to early gestation. SUBCHORIONIC BLEED: No. SIZE OF BLEED: Not applicable. UTERUS: No masses. No anomalies. CERVICAL LENGTH: 2.2 cm. Closed. RIGHT ADNEXA: Normal ovary with normal vascular flow. No adnexal free fluid. No adnexal masses. LEFT ADNEXA: Normal ovary with normal vascular flow. No adnexal free fluid. No adnexal masses. FREE FLUID: None. OTHER: No other significant finding. IMPRESSION: LIVING INTRAUTERINE . EGA 6 WEEK 3 DAY. Trimester of : First trimester - 0 to 13 weeks. TECHNICAL DOCUMENTATION: JOB ID: [id number] 2010 [employer]- All Rights Reserved rev Reading location - IP/workstation name: [email or web address]
--- NOTE | 2020-09-20 13:17 | PDOC PROGRESS REPORT ---
Subjective Date:: 09/20/20 Subjective:: Pt is not awake Reason For Visit: ACUTE RESPIRATORY FAILURE WITH HYPERCAPNIA Physical Exam - Physical Exam Vital Signs: Temp Pulse Resp BP Pulse Ox 99.7 F 95 24 H 110/53 L 97 09/20/20 10:00 09/20/20 11:39 09/20/20 11:39 09/20/20 10:29 09/20/20 11:39 Intake & Output 09/19/20 09/20/20 09/21/20 06:59 06:59 06:59 Intake Total 2889 204 Output Total 1300 700 Balance 1589 -496 Weight 94.5 kg General appearance: PRESENT: other - Pt is intubated in the ICU Result Laboratory Results: 09/20/20 02:45 09/20/20 02:45 09/19/20 09/19/20 09/19/20 12:08 16:00 22:20 WBC RBC Hgb Hct MCV MCH MCHC RDW Plt Count Seg Neutrophils % Carbonic Acid 1.38 H HCO3/H2CO3 Ratio 16:1 ABG pH 7.30 L ABG pCO2 46.0 H ABG pO2 87.0 ABG HCO3 22.3 ABG O2 Saturation 95.7 ABG Base Excess -4.2 FiO2 45% Sodium Potassium Chloride Carbon Dioxide Anion Gap BUN Creatinine Est GFR ( Amer) Glucose Calcium Magnesium 1.8 Total Bilirubin AST Alkaline Phosphatase Total Protein Albumin Triglycerides Cholesterol LDL Cholesterol Direct VLDL Cholesterol HDL Cholesterol TSH Free T4 Urine Color YELLOW Urine Appearance CLEAR Urine pH 5.0 Ur Specific Franklin 1.055 Urine Protein 100 H Urine Glucose (UA) 50 H Urine Ketones TRACE H Urine Blood NEGATIVE Urine Nitrite NEGATIVE Ur Leukocyte Esterase NEGATIVE Urine WBC (Auto) 1 Urine RBC (Auto) 4 09/19/20 09/20/20 09/20/20 22:57 02:02 02:45 WBC 22.8 H RBC 4.24 Hgb 12.7 Hct 37.8 MCV 89 MCH 29.9 MCHC 33.6 RDW 13.3 Plt Count 264 Seg Neutrophils % Not Reportable Carbonic Acid 2.07 H 1.39 H HCO3/H2CO3 Ratio 11:1 16:1 ABG pH 7.15 L* 7.31 L ABG pCO2 68.9 H 46.3 H ABG pO2 107.0 H 73.8 L ABG HCO3 23.6 22.9 ABG O2 Saturation 96.2 93.5 L ABG Base Excess -6.5 -3.4 FiO2 60% 45% Sodium Potassium Chloride Carbon Dioxide Anion Gap BUN Creatinine Est GFR ( Amer) Glucose Calcium Magnesium Total Bilirubin AST Alkaline Phosphatase Total Protein Albumin Triglycerides Cholesterol LDL Cholesterol Direct VLDL Cholesterol HDL Cholesterol TSH Free T4 Urine Color Urine Appearance Urine pH Ur Specific Franklin Urine Protein Urine Glucose (UA) Urine Ketones Urine Blood Urine Nitrite Ur Leukocyte Esterase Urine WBC (Auto) Urine RBC (Auto) 09/20/20 09/20/20 09/20/20 02:45 02:45 04:45 WBC RBC Hgb Hct MCV MCH MCHC RDW Plt Count Seg Neutrophils % Carbonic Acid HCO3/H2CO3 Ratio ABG pH ABG pCO2 ABG pO2 ABG HCO3 ABG O2 Saturation ABG Base Excess FiO2 Sodium 137.7 Potassium 4.0 Chloride 104 Carbon Dioxide 21 L Anion Gap 13 BUN 6 L Creatinine 0.71 Est GFR ( Amer) > 60 Glucose 137 H Calcium 9.0 Magnesium Total Bilirubin 0.8 AST 25 Alkaline Phosphatase 86 Total Protein 6.5 Albumin 3.8 Triglycerides 134 Cholesterol 131.24 LDL Cholesterol Direct 80 VLDL Cholesterol 27.0 HDL Cholesterol 34 L TSH 1.31 Free T4 1.10 Urine Color YELLOW Urine Appearance CLEAR Urine pH 5.0 Ur Specific Franklin 1.028 Urine Protein 30 H Urine Glucose (UA) 50 H Urine Ketones NEGATIVE Urine Blood SMALL H Urine Nitrite NEGATIVE Ur Leukocyte Esterase NEGATIVE Urine WBC (Auto) 3 Urine RBC (Auto) 43 09/20/20 04:45 WBC RBC Hgb Hct MCV MCH MCHC RDW Plt Count Seg Neutrophils % Carbonic Acid 1.29 HCO3/H2CO3 Ratio 17:1 ABG pH 7.35 ABG pCO2 42.9 ABG pO2 74.3 L ABG HCO3 22.9 ABG O2 Saturation 94.2 ABG Base Excess -2.8 FiO2 45% Sodium Potassium Chloride Carbon Dioxide Anion Gap BUN Creatinine Est GFR ( Amer) Glucose Calcium Magnesium Total Bilirubin AST Alkaline Phosphatase Total Protein Albumin Triglycerides Cholesterol LDL Cholesterol Direct VLDL Cholesterol HDL Cholesterol TSH Free T4 Urine Color Urine Appearance Urine pH Ur Specific Franklin Urine Protein Urine Glucose (UA) Urine Ketones Urine Blood Urine Nitrite Ur Leukocyte Esterase Urine WBC (Auto) Urine RBC (Auto) 09/19/20 09/20/20 09/20/20 12:08 02:45 02:45 Troponin I < 0.012 < 0.012 NT-Pro-B Natriuret Pep 333 H 09/20/20 08:43 Troponin I < 0.012 NT-Pro-B Natriuret Pep Impressions: Soft Tissue Neck CT 09/19/20 00:00 IMPRESSION: No acute finding in the neck. Study slightly limited by lack of contrast. Chest/Abdomen CTA 09/19/20 17:34 IMPRESSION: 1. There are very faintly defined ground-glass infiltrates in each lung. Cannot exclude an atypical infectious/ inflammatory process. 2. There is no pulmonary embolus. There is no aortic aneurysm or dissection. Chest X-Ray 09/19/20 21:35 IMPRESSION: Intubated Enteric tube tip in the stomach Please see admit notes for history. Consult for status. U/S ordered Assessment & Plan - Diagnosis (1) Acute bronchitis with bronchospasm Is this a current diagnosis for this admission?: Yes (2) Acute hypercapnic respiratory failure Is this a current diagnosis for this admission?: Yes (3) Qualifiers: Weeks of gestation: 8 weeks Qualified Code(s): Z3A.08 - 8 weeks gestation of Is this a current diagnosis for this admission?: Yes Plan: Check sono for dates and status. Keep O2 sat above 95% if possible. - Time Time Spent with patient: 15-24 minutes Level of Care: ICU
[2020-09-20] MEDS: NORMAL SALINE 1000 ML 1,000 ML IV PRN (15:06)
[2020-09-20] MEDS: CEFTRIAXONE SODIUM 1,000 MG in DEXTROSE 5%-WATER 50 ML IV SCH (17:11)
[2020-09-20] MEDS: AZITHROMYCIN 500 MG in DEXTROSE 5%-WATER 250 ML IV SCH (18:42)
[2020-09-21] MEDS: PROPOFOL 1,000 MG/100 ML INFUS..BTL IV PRN ×8 (00:14→19:29)
[2020-09-21] MEDS: IPRATROPIUM/ALBUTEROL 0.5-2.5 MG/3 ML AMPUL NEB SCH ×6 (00:30→20:19)
[2020-09-21 03:52] LABS: ARTERIAL BLOOD BASE EXCESS 1.4 mmol/L; ARTERIAL BLOOD H2CO3 1.35 mmol/L (1.05-1.35); ARTERIAL BLOOD HCO3 26.8 mmol/L (20-24); ARTERIAL BLOOD O2 SATURATION 93.9 % (94-98); ARTERIAL BLOOD PCO2 44.9 mmHg (35-45); ARTERIAL BLOOD PH 7.39 (7.35-7.45); ARTERIAL BLOOD PO2 70.1 mmHg (80-100); ARTERIAL BLOOD TOTAL CO2 28.1 mmol/L (21-25)
[2020-09-21] MEDS: HEPARIN SOD (PORCINE) 5,000 UNIT/ML 1 ML VIAL SUBCUT SCH ×3 (05:17→21:36)
[2020-09-21] MEDS: METHYLPREDNISOLONE INJ 40 MG/1 ML SDV IV SCH ×3 (05:17→22:00)
[2020-09-21 08:47] LABS: INTERNATIONAL RATION (INR) 1.05; PROTHROMBIN TIME 13.9 SEC (11.4-15.4)
[2020-09-21 08:49] LABS: HEMATOCRIT 33.9 % (36.0-47.0); HEMOGLOBIN 11.7 g/dL (12.0-15.5); MEAN CORPUSCULAR HEMOGLOBIN 31.1 pg (27.0-33.4); MEAN CORPUSCULAR HGB CONC 34.5 g/dL (32.0-36.0); MEAN CORPUSCULAR VOLUME 90 fl (80-97); PLATELET COUNT 286 10^3/uL (150-450); RED BLOOD COUNT 3.75 10^6/uL (3.72-5.28); RED CELL DISTRIBUTION WIDTH 13.5 % (11.5-14.0); WHITE BLOOD COUNT 18.2 10^3/uL (4.0-10.5)
[2020-09-21 08:56] LABS: ALBUMIN 3.4 g/dL (3.5-5.0); ALKALINE PHOSPHATASE 61 U/L (38-126); ANION GAP 9 (5-19); ASPARTATE AMINO TRANSFERASE 22 U/L (14-36); BILIRUBIN,DIRECT 0.3 mg/dL (0.0-0.4); BILIRUBIN,TOTAL 0.4 mg/dL (0.2-1.3); BLOOD UREA NITROGEN 10 mg/dL (7-20); CALCIUM 9.3 mg/dL (8.4-10.2); CARBON DIOXIDE 26 mmol/L (22-30); CHLORIDE 107 mmol/L (98-107); GLUCOSE 160 mg/dL (75-110); TRIGLYCERIDES 212 mg/dL (<150)
[2020-09-21 08:57] LABS: PHOSPHORUS 4.2 mg/dL (2.5-4.5)
[2020-09-21 09:07] LABS: DIRECT LDL 76 mg/dL (<100)
[2020-09-21 09:12] LABS: ABSOLUTE LYMPHOCYTES# (MANUAL) 1.1 10^3/uL (0.5-4.7); ABSOLUTE MONOCYTES # (MANUAL) 0.5 10^3/uL (0.1-1.4); BASOPHILS % (MANUAL) 0 % (0-2); EOSINOPHILS % (MANUAL) 0 % (0-6); LYMPHOCYTES % (MANUAL) 6 % (13-45); MONOCYTES % (MANUAL) 3 % (3-13); SEGMENTED NEUTROPHILS % (MAN) 91 % (42-78); TOTAL CELLS COUNTED 100
[2020-09-21 09:13] LABS: FREE T4 (FREE THYROXINE) 1.3 ng/dL (0.78-2.19); PLATELET COMMENT ADEQUATE; RBC MORPHOLOGY COMMENT NORMO-CYTIC/CHROMIC
[2020-09-21 09:19] LABS: VLDL CHOLESTEROL 42.4 mg/dL (10-31)
[2020-09-21 09:27] LABS: THYROID STIMULATING HORMONE 0.08 uIU/mL (0.47-4.68)
[2020-09-21] MEDS: BUDESONIDE NEB 0.25 MG/2 ML AMPUL NEB SCH ×2 (11:12→20:19)
--- NOTE | 2020-09-21 11:35 | PDOC CRITICAL CARE PROG REPORT ---
General Date:: 09/21/20 Events in the past 12 to 24 Hours:: No events overnight. Appreciate OB recs. Reason for ICU Addmission:: respiratory failure with hypercarbia Physical Exam Vital Signs: Temp Pulse Resp BP Pulse Ox 99.0 F 103 H 24 H 134/72 H 96 09/21/20 10:00 09/21/20 08:36 09/21/20 08:36 09/21/20 07:56 09/21/20 08:36 Intake & Output 09/20/20 09/21/20 09/22/20 06:59 06:59 06:59 Intake Total 2889 2594 Output Total 1300 2290 225 Balance 1589 304 -225 Weight 94.5 kg 95.3 kg Weight/Height Weight 95.3 kg Height 5 ft 5 in Exam: Neuro: Paralyzed, intubated, sedated. GCS: 3T CV: RRR Resp: coarse L>R, 91% via MV Abd: Soft, IUP Ext: no edema, 2+ BUE pulses. Laboratory/Radiographs Laboratory Results: 09/21/20 08:18 09/21/20 08:18 09/21/20 09/21/20 09/21/20 03:40 08:18 08:18 WBC 18.2 H RBC 3.75 Hgb 11.7 L Hct 33.9 L MCV 90 MCH 31.1 MCHC 34.5 RDW 13.5 Plt Count 286 Seg Neutrophils % Not Reportable Carbonic Acid 1.35 HCO3/H2CO3 Ratio 19:1 ABG pH 7.39 ABG pCO2 44.9 ABG pO2 70.1 L ABG HCO3 26.8 H ABG O2 Saturation 93.9 L ABG Base Excess 1.4 FiO2 55% Sodium 141.6 Potassium 4.0 Chloride 107 Carbon Dioxide 26 Anion Gap 9 BUN 10 Creatinine 0.61 Est GFR ( Amer) > 60 Glucose 160 H Calcium 9.3 Phosphorus Magnesium Total Bilirubin 0.4 AST 22 Alkaline Phosphatase 61 Total Protein 6.0 L Albumin 3.4 L Triglycerides 212 H Cholesterol 124.20 LDL Cholesterol Direct 76 VLDL Cholesterol 42.4 H HDL Cholesterol 30 L TSH Free T4 09/21/20 09/21/20 08:18 08:18 WBC RBC Hgb Hct MCV MCH MCHC RDW Plt Count Seg Neutrophils % Carbonic Acid HCO3/H2CO3 Ratio ABG pH ABG pCO2 ABG pO2 ABG HCO3 ABG O2 Saturation ABG Base Excess FiO2 Sodium Potassium Chloride Carbon Dioxide Anion Gap BUN Creatinine Est GFR ( Amer) Glucose Calcium Phosphorus 4.2 Magnesium 2.1 Total Bilirubin AST Alkaline Phosphatase Total Protein Albumin Triglycerides Cholesterol LDL Cholesterol Direct VLDL Cholesterol HDL Cholesterol TSH 0.08 L Free T4 1.30 09/19/20 11:55 Sputum Gram Stain - Final 09/19/20 09/20/20 09/20/20 12:08 02:45 02:45 Troponin I < 0.012 < 0.012 NT-Pro-B Natriuret Pep 333 H 09/20/20 09/20/20 09/21/20 08:43 15:33 08:18 Troponin I < 0.012 < 0.012 NT-Pro-B Natriuret Pep 111 Impressions: Soft Tissue Neck CT 09/19/20 00:00 IMPRESSION: No acute finding in the neck. Study slightly limited by lack of c ontrast. Chest/Abdomen CTA 09/19/20 17:34 IMPRESSION: 1. There are very faintly defined ground-glass infiltrates in each lung. Cannot exclude an atypical infectious/ inflammatory process. 2. There is no pulmonary embolus. There is no aortic aneurysm or dissection. Chest X-Ray 09/19/20 21:35 IMPRESSION: Intubated Enteric tube tip in the stomach Obstetrics Ultrasound 09/20/20 00:00 IMPRESSION: LIVING INTRAUTERINE . EGA 6 WEEK 3 DAY. Trimester of : First trimester - 0 to 13 weeks. Assessment and Plan - Diagnosis (1) Acute respiratory failure with hypoxia Is this a current diagnosis for this admission?: Yes (2) Qualifiers: Weeks of gestation: 8 weeks Qualified Code(s): Z3A.08 - 8 weeks gestation of Is this a current diagnosis for this admission?: Yes Plan Summary: 30 yo female with acute respiratory failure in the setting of Neuro: sedated (propofol), paralyzed (SHRAVAN), GCS 3T. No wean 2/2 tenuous pulm status CV: no pressors Pulm: Acute Respiratory Failure- no vent wean. Hypoxic on ABG. P:F of 127 c/w ARDS-improving. Likely Asthma Exacerbation- on inhaled and systemic steroids, nebulizers. FEN: on MIVF, begin TF. Electrolytes ok. Heme/ID: Rocephin to 09/27. Azithromycin. Improving leukocytosis overall. Renal: no issues. Endo: Systemic Steroids, prevent hypo/hyperglycemia Appreciate Tree Trimming Supervisor recs for IUP. Critical Time Critical Time (minutes): 31 Level of Care: ICU -: 1. The care of a critical patient is a dynamic process. This note is a guest service representative synopsis but static in nature. The timeframe for treatments given in order is not necessarily the actual time these treatments may have been done. 2. This patient requires critical care secondary to ongoing requirements for therapy not offered or safe outside the critical care environment. Transfer to a lower level of care will result in altered life or limb morbidity and mortality. 3. Multidisciplinary rounds completed. 4. ABCDE bundle addressed.
[2020-09-21] MEDS: NORMAL SALINE 1000 ML 1,000 ML IV PRN (12:35)
--- NOTE | 2020-09-21 12:55 | RADIOLOGY REPORT (SQ) ---
EXAM DESCRIPTION: CHEST SINGLE VIEW IMAGES COMPLETED DATE/TIME: 09/21/2020 11:50 am REASON FOR STUDY: Resp Failure, hypoxemia COMPARISON: CT chest 09/19/2020 Chest films 09/19/2020 EXAM PARAMETERS: NUMBER OF VIEWS: One view. TECHNIQUE: Single frontal radiographic view of the chest acquired. RADIATION DOSE: NA LIMITATIONS: None. FINDINGS: LUNGS AND PLEURA: There is minimal airspace disease at the left lung. Lungs are otherwise grossly clear. No pleural effusion. No pneumothorax. MEDIASTINUM AND HILAR STRUCTURES: No masses. Contour normal. HEART AND VASCULAR STRUCTURES: No cardiomegaly BONES: No acute findings. HARDWARE: Endotracheal tube tip 5 cm above the syed. Nasogastric tube tip and side port in the sto mach. No central venous catheter. OTHER: No other significant finding. IMPRESSION: Minimal left basilar airspace disease. Endotracheal tube, nasogastric tube in good positioning TECHNICAL DOCUMENTATION: JOB ID: [id number] 2010 [employer]- All Rights Reserved Reading location - IP/workstation name: [id number]
[2020-09-21] MEDS: NORMAL SALINE 500 ML with ROCURONIUM BROMIDE 500 MG IV PRN ×2 (16:45)
[2020-09-21] MEDS: CEFTRIAXONE SODIUM 1,000 MG in DEXTROSE 5%-WATER 50 ML IV SCH (17:32)
[2020-09-21] MEDS: AZITHROMYCIN 500 MG in DEXTROSE 5%-WATER 250 ML IV SCH (17:33)
[2020-09-21] MEDS ORDERED: FUROSEMIDE INJ/PF 20 MG/2 ML SDV ONE (17:48)
[2020-09-21] MEDS ORDERED: FENTANYL CITRATE INJ/PF 100 MCG/2 ML AMPUL ONE (17:48)
[2020-09-21] MEDS ORDERED: FENTANYL CITRATE INJ/PF 100 MCG/2 ML AMPUL IV ONE (17:49)
[2020-09-21] MEDS ORDERED: FUROSEMIDE INJ/PF 20 MG/2 ML SDV IV ONE (17:49)
[2020-09-21] MEDS ORDERED: PRENATAL VITAMIN W DHA CAPSULE PO ONE (18:00)
[2020-09-21] MEDS ORDERED: MIDAZOLAM 2 MG/2 ML INJ IV PRN (19:33)
--- NOTE | 2020-09-21 21:25 | Progress Note ---
Provider Note Provider Note: Called to bedside for self-extubation. Restraints in place. Propofol running. Pt awake, alert, oriented, follow commands Coarse LS, but productive cough and clears own secretions. Normal Phonation No hypoxemia Trial of extubation O2 for sats>92% IS to bedside, PEP tx if IS ineffective. D/c Propofol/versed
[2020-09-22] MEDS: IPRATROPIUM/ALBUTEROL 0.5-2.5 MG/3 ML AMPUL NEB SCH ×7 (00:29→23:49)
[2020-09-22 04:19] LABS: HEMATOCRIT 36.8 % (36.0-47.0); HEMOGLOBIN 12.2 g/dL (12.0-15.5); MEAN CORPUSCULAR HEMOGLOBIN 29.6 pg (27.0-33.4); MEAN CORPUSCULAR HGB CONC 33.1 g/dL (32.0-36.0); MEAN CORPUSCULAR VOLUME 89 fl (80-97); PLATELET COUNT 299 10^3/uL (150-450); RED BLOOD COUNT 4.11 10^6/uL (3.72-5.28); RED CELL DISTRIBUTION WIDTH 13.7 % (11.5-14.0); WHITE BLOOD COUNT 29.8 10^3/uL (4.0-10.5)
[2020-09-22 04:44] LABS: ANION GAP 5 (5-19); BLOOD UREA NITROGEN 15 mg/dL (7-20); CALCIUM 9.3 mg/dL (8.4-10.2); CARBON DIOXIDE 30 mmol/L (22-30); CHLORIDE 104 mmol/L (98-107); GLUCOSE 136 mg/dL (75-110); POTASSIUM 4.1 mmol/L (3.6-5.0)
[2020-09-22] MEDS: NORMAL SALINE 1000 ML 1,000 ML IV PRN (05:30)
[2020-09-22] MEDS: HEPARIN SOD (PORCINE) 5,000 UNIT/ML 1 ML VIAL SUBCUT SCH ×3 (06:31→21:19)
[2020-09-22] MEDS: METHYLPREDNISOLONE INJ 40 MG/1 ML SDV IV SCH ×3 (06:31→21:19)
[2020-09-22] MEDS: BUDESONIDE NEB 0.25 MG/2 ML AMPUL NEB SCH ×2 (08:04→20:56)
--- NOTE | 2020-09-22 11:07 | PDOC CRITICAL CARE PROG REPORT ---
General Date:: 09/22/20 Resuscitation Status: Full Code Events in the past 12 to 24 Hours:: No events overnight. Appreciate OB recs. 1817: self extubated last night, did well overnight no need for reintubation maintained sats on 5L NC. Sitting up in bed this am eating and conversing Reason for ICU Addmission:: respiratory failure with hypercarbia - Medications: Medications reviewed and adjusted accordingly: Yes Physical Exam Vital Signs: Temp Pulse Resp BP Pulse Ox 99.9 F 95 24 H 135/77 H 96 09/22/20 08:56 09/22/20 08:05 09/22/20 08:05 09/22/20 05:57 09/22/20 08:05 Intake & Output 09/21/20 09/22/20 09/23/20 06:59 06:59 06:59 Intake Total 2594 2558 50 Output Total 2290 3305 175 Balance 304 -987 -125 Weight 95.3 kg 92.2 kg Weight/Height Weight 92.2 kg Height 5 ft 5 in General appearance: PRESENT: no acute distress Head exam: PRESENT: atraumatic, normocephalic Eye exam: PRESENT: PERRLA Mouth exam: PRESENT: moist Neck exam: PRESENT: full ROM Respiratory exam: PRESENT: rhonchi Cardiovascular exam: PRESENT: RRR, +S1, +S2 Vascular exam: PRESENT: normal capillary refill GI/Abdominal exam: PRESENT: normal bowel sounds Gentrourinary exam: PRESENT: indwelling catheter Musculoskeletal exam: PRESENT: full ROM Neurological exam: PRESENT: alert, awake, oriented to person, oriented to place, oriented to time Psychiatric exam: PRESENT: normal mood Skin exam: PRESENT: normal color Laboratory/Radiographs Laboratory Results: 09/22/20 04:11 09/22/20 04:11 09/22/20 09/22/20 04:11 04:11 WBC 29.8 H RBC 4.11 Hgb 12.2 Hct 36.8 MCV 89 MCH 29.6 MCHC 33.1 RDW 13.7 Plt Count 299 Sodium 139.4 Potassium 4.1 Chloride 104 Carbon Dioxide 30 Anion Gap 5 BUN 15 Creatinine 0.64 Est GFR ( Amer) > 60 Glucose 136 H Calcium 9.3 Phosphorus 4.0 Magnesium 1.8 09/19/20 11:55 Sputum Gram Stain - Final 09/19/20 09/20/20 09/20/20 12:08 02:45 02:45 Troponin I < 0.012 < 0.012 NT-Pro-B Natriuret Pep 333 H 09/20/20 09/20/20 09/21/20 08:43 15:33 08:18 Troponin I < 0.012 < 0.012 NT-Pro-B Natriuret Pep 111 Impressions: Soft Tissue Neck CT 09/19/20 00:00 IMPRESSION: No acute finding in the neck. Study slightly limited by lack of contrast. Chest/Abdomen CTA 09/19/20 17:34 IMPRESSION: 1. There are very faintly defined ground-glass infiltrates in each lung. Cannot exclude an atypical infectious/ inflammatory process. 2. There is no pulmonary embolus. There is no aortic aneurysm or dissection. Obstetrics Ultrasound 09/20/20 00:00 IMPRESSION: LIVING INTRAUTERINE . EGA 6 WEEK 3 DAY. Trimester of : First trimester - 0 to 13 weeks. Chest X-Ray 09/21/20 00:00 IMPRESSION: Minimal left basilar airspace disease. Endotracheal tube, nasogastric tube in good positioning All labs, radiographs, diagnostic studies and EKGs were personally reviewed: Yes In addition, reports of radiographic and diagnostic studies were read: Yes Assessment and Plan - Diagnosis (1) Acute respiratory failure with hypoxia Is this a current diagnosis for this admission?: Yes Plan: self extubated last evening maintaing good O2 sats on 5L NC Continue steroids and nebs (2) Qualifiers: Weeks of gestation: 8 weeks Qualified Code(s): Z3A.08 - 8 weeks gestation of Is this a current diagnosis for this admission?: Yes Plan: - 8 weeks AOG -Dr hummel ROTARY PUMP OPERATOR following Plan Summary: Transfer to Medicine floor Critical Time Critical Time (minutes): 45 Level of Care: MEDICAL -: 1. The care of a critical patient is a dynamic process. This note is a veterans contact representative synopsis but static in nature. The timeframe for treatments given in order is not necessarily the actual time these treatments may have been done. 2. This patient requires critical care secondary to ongoing requirements for therapy not offered or safe outside the critical care environment. Transfer to a lower level of care will result in altered life or limb morbidity and mortality. 3. Multidisciplinary rounds completed. 4. ABCDE bundle addressed.
[2020-09-22] MEDS: PRENATAL VITAMIN W DHA CAPSULE PO SCH (11:59)
[2020-09-22] MEDS: CEFTRIAXONE SODIUM 1,000 MG in DEXTROSE 5%-WATER 50 ML IV SCH (17:05)
[2020-09-22] MEDS: AZITHROMYCIN 500 MG in DEXTROSE 5%-WATER 250 ML IV SCH (17:05)
--- NOTE | 2020-09-22 17:10 | PDOC PROGRESS REPORT ---
Subjective Date:: 09/22/20 Subjective:: Patient states she feels well today and would like to go home soon. Asking if s he can walk around. She denies prior history of asthma. Reason For Visit: ACUTE RESPIRATORY FAILURE WITH HYPERCAPNIA Physical Exam Vital Signs: Temp Pulse Resp BP Pulse Ox 98.2 F 87 18 138/78 H 97 09/22/20 13:34 09/22/20 16:00 09/22/20 16:00 09/22/20 13:34 09/22/20 16:00 Intake & Output 09/21/20 09/22/20 09/23/20 06:59 06:59 06:59 Intake Total 2594 2558 768 Output Total 2290 3305 175 Balance 304 -747 593 Weight 95.3 kg 92.2 kg General appearance: PRESENT: no acute distress, cooperative Neck exam: ABSENT: JVD Respiratory exam: PRESENT: symmetrical, unlabored, wheezes - Expiratory wheeze in the upper lungs bilaterally as well as upper airway in the neck.. ABSENT: accessory muscle use, retraction, tachypnea Cardiovascular exam: PRESENT: RRR, +S1, +S2. ABSENT: tachycardia GI/Abdominal exam: PRESENT: soft. ABSENT: rebound, rigid, tenderness Neurological exam: PRESENT: alert, awake, oriented to person, oriented to place, oriented to time Results Laboratory Results: 09/22/20 04:11 09/22/20 04:11 09/22/20 09/22/20 04:11 04:11 WBC 29.8 H RBC 4.11 Hgb 12.2 Hct 36.8 MCV 89 MCH 29.6 MCHC 33.1 RDW 13.7 Plt Count 299 Sodium 139.4 Potassium 4.1 Chloride 104 Carbon Dioxide 30 Anion Gap 5 BUN 15 Creatinine 0.64 Est GFR ( Amer) > 60 Glucose 136 H Calcium 9.3 Phosphorus 4.0 Magnesium 1.8 09/19/20 11:55 Sputum Gram Stain - Final 09/19/20 11:55 Sputum Sputum Culture - Final Staphylococcus Aureus Normal Nicolette 09/19/20 09/20/20 09/20/20 12:08 02:45 02:45 Troponin I < 0.012 < 0.012 NT-Pro-B Natriuret Pep 333 H 09/20/20 09/20/20 09/21/20 08:43 15:33 08:18 Troponin I < 0.012 < 0.012 NT-Pro-B Natriuret Pep 111 Impressions: Soft Tissue Neck CT 09/19/20 00:00 IMPRESSION: No acute finding in the neck. Study slightly limited by lack of contrast. Chest/Abdomen CTA 09/19/20 17:34 IMPRESSION: 1. There are very faintly defined ground-glass infiltrates in each lung. Cannot exclude an atypical infectious/ inflammatory process. 2. There is no pulmonary embolus. There is no aortic aneurysm or dissection. Obstetrics Ultrasound 09/20/20 00:00 IMPRESSION: LIVING INTRAUTERINE . EGA 6 WEEK 3 DAY. Trimester of : First trimester - 0 to 13 weeks. Chest X-Ray 09/21/20 00:00 IMPRESSION: Minimal left basilar airspace disease. Endotracheal tube, nasogastric tube in good positioning Assessment and Plan - Diagnosis (1) Reactive airway disease with wheezing with acute exacerbation Qualifiers: Asthma severity: unspecified severity Asthma persistence: unspecified Qualified Code(s): J45.901 - Unspecified asthma with (acute) exacerbation Is this a current diagnosis for this admission?: Yes Plan: Denies any history of asthma. Also states asthma does not run in the family. Probably reactive airway disease from her acute bacterial bronchitis. Expiratory wheezes mostly in her upper airway and high upper lung sifuentes. Continue bronchodilator treatments. Pulmonary be negative. Continue Solu- Medrol. Currently improved In terms of her hypoxia, wean off oxygen. SOUVENIR AND NOVELTY MAKER recommends keeping SpO2 93% or above. Recommend PFTs as outpatient. (2) Acute bronchitis, bacterial Is this a current diagnosis for this admission?: Yes Plan: Sputum culture growing MSSA. Continue ceftriaxone. Last dose of azithromycin today. (3) Qualifiers: Weeks of gestation: less than 8 weeks Qualified Code(s): Z3A.01 - Less than 8 weeks gestation of Is this a current diagnosis for this admission?: Yes Plan: OB ultrasound confirmed intrauterine estimated at just over 6 weeks on presentation. SOUVENIR AND NOVELTY MAKER following. Continue vitamins. (4) Acute hypercapnic respiratory failure Is this a current diagnosis for this admission?: Yes Plan: Secondary to reactive bronchospasms. Resolved. Extubated last night. - Time Time Spent with patient: 15-24 minutes Anticipated Discharge Disposition: Home, Self Care Anticipated Discharge Timeframe: within 36 hours
--- NOTE | 2020-09-23 01:35 | RADIOLOGY REPORT (SQ) ---
CLINICAL HISTORY: vaginal bleeding COMPARISON: None. TECHNIQUE: US LESS THAN 14 WEEKS 09/22/2020 12:00 AM BLACK TOP PAVER OPERATOR FINDINGS: The uterus measures 9 cm. Intrauterine gestational sac is present with a pole measuring 5 mm, corresponding to six weeks two days. heart rate is 157 bpm. Ovaries are not clearly imaged. IMPRESSION: Live early intrauterine gestation.
[2020-09-23] MEDS: HEPARIN SOD (PORCINE) 5,000 UNIT/ML 1 ML VIAL SUBCUT SCH (05:24)
[2020-09-23] MEDS: METHYLPREDNISOLONE INJ 40 MG/1 ML SDV IV SCH (05:24)
[2020-09-23] MEDS: IPRATROPIUM/ALBUTEROL 0.5-2.5 MG/3 ML AMPUL NEB SCH ×3 (06:09→12:09)
--- NOTE | 2020-09-23 07:32 | PDOC CONSULTATION ---
Consultation Consult Date: 09/23/20 Provider Consulted: GWEN RODRIGUEZ Consult reason:: vaginal bleeding after removal of urinary catheter History of Present Illness Admission Date/PCP: 09/19/20 16:47 History of Present Illness: SARAH DANIELS is a 30 year old female who is at approximately 6 weeks gestation. She has been in ICU and intubated due to severe asthma exacerbation. She was moved to [facility] floor yesterday and there was some small blood noted when her urinary catheter was removed and felt to be a small clot. Concern for prompted a call to me and I asked to have a repeat ob 1st trimester sono performed for FHTs due to her early gestational age. The sono is reassurin g and actually shows a better heart rate at this time vs her initial sono she had at admission. (157 bpm vs 101 bpm). At this early gestational age would recommend continued montioring for possible miscarriage signs. Unfortunately there is no interventions that could prevent misscarriage at this early gestational age. Stress can indeed contribute to an increased miscarriage risk and the patient certainly has been under increased stress with her hospital course. Will continue to monitor. Please let us know if there are any changes in her bleeding. Past Medical History LMP: July Cardiac Medical History: Reports: None Pulmonary Medical History: Reports: None, Asthma EENT Medical History: Reports: None Neurological Medical History: Reports: None Endocrine Medical History: Reports: None Renal/ Medical History: Reports: None Malignancy Medical History: Reports: None GI Medical History: Reports: None Musculoskeltal Medical History: Reports: None Skin Medical History: Reports: None Psychiatric Medical History: Reports: None Traumatic Medical History: Reports: None Infectious Medical History: Reports: None Social History Lives with: Family Smoking Status: Current Every Day Smoker Electronic Cigarette use?: No - Advance Directive Resuscitation Status: Full Code Family History Family History: Other - unable to obtain intubated and ssedated Parental Family History Reviewed: Yes Children Family History Reviewed: Yes Sibling(s) Family History Reviewed.: Yes Medication/Allergy Home Medications: No Home Medications 09/19/20 Allergies/Adverse Reactions: No Known Allergies Allergy (Unverified 04/25/12 03:39) Physical Exam - Physical Exam Vital Signs: Temp Pulse Resp BP Pulse Ox 98.5 F 82 20 120/50 L 96 09/23/20 00:06 09/23/20 02:00 09/23/20 00:06 09/23/20 00:06 09/23/20 00:06 Intake & Output 09/22/20 09/23/20 09/24/20 06:59 06:59 06:59 Intake Total 2558 1558 Output Total 3305 175 Balance -747 1383 Weight 92.2 kg 90 kg Result Laboratory Results: 09/22/20 04:11 09/22/20 04:11 09/19/20 11:55 Sputum Gram Stain - Final 09/19/20 11:55 Sputum Sputum Culture - Final Staphylococcus Aureus Normal Nicolette 09/19/20 09/20/20 09/20/20 12:08 02:45 02:45 Troponin I < 0.012 < 0.012 NT-Pro-B Natriuret Pep 333 H 09/20/20 09/20/20 09/21/20 08:43 15:33 08:18 Troponin I < 0.012 < 0.012 NT-Pro-B Natriuret Pep 111 Impressions: Soft Tissue Neck CT 09/19/20 00:00 IMPRESSION: No acute finding in the neck. Study slightly limited by lack of contrast. Chest/Abdomen CTA 09/19/20 17:34 IMPRESSION: 1. There are very faintly defined ground-glass infiltrates in each lung. Cannot exclude an atypical infectious/ inflammatory process. 2. There is no pulmonary embolus. There is no aortic aneurysm or dissection. Chest X-Ray 09/21/20 00:00 IMPRESSION: Minimal left basilar airspace disease. Endotracheal tube, nasogastric tube in good positioning Obstetrics Ultrasound 09/22/20 00:00 IMPRESSION: Live early intrauterine gestation. Assessment & Plan - Diagnosis (1) Acute bronchitis with bronchospasm Is this a current diagnosis for this admission?: Yes (2) Acute bronchitis, bacterial Is this a current diagnosis for this admission?: Yes (3) Acute hypercapnic respiratory failure Is this a current diagnosis for this admission?: Yes (4) Acute respiratory failure with hypoxia Is this a current diagnosis for this admission?: Yes (5) Asthmaticus, status Qualifiers: Asthma severity: severe Asthma persistence: persistent Qualified Code(s): J45.52 - Severe persistent asthma with status asthmaticus Is this a current diagnosis for this admission?: Yes (6) Qualifiers: Weeks of gestation: less than 8 weeks Qualified Code(s): Z3A.01 - Less than 8 weeks gestation of Is this a current diagnosis for this admission?: Yes Plan: continue to monitor. Please continue to care for patient for her medical cond itions to keep her sats appropriate. (7) Reactive airway disease with wheezing with acute exacerbation Qualifiers: Asthma severity: unspecified severity Asthma persistence: unspecified Qualified Code(s): J45.901 - Unspecified asthma with (acute) exacerbation (8) Tachypnea Is this a current diagnosis for this admission?: Yes - Time Time Spent: 30 to 50 Minutes Medications reviewed and adjusted accordingly: No Anticipated Discharge Disposition: Home, Self Care Anticipated Discharge Timeframe: per hospit - Inpatient Certification Based on my medical assessment, after consideration of the patient's comorbidities, presenting symptoms, or acuity I expect that the services needed warrant INPATIENT care.: Yes I certify that my determination is in accordance with my understanding of [facility]'s requirements for reasonable and necessary INPATIENT services [42 CFR 412.3e].: Yes Medical Necessity: Need Close Monitoring Due to Risk of Patient Decompensation
[2020-09-23] MEDS: BUDESONIDE NEB 0.25 MG/2 ML AMPUL NEB SCH (08:07)
[2020-09-23 08:53] VITALS: BP 131/85
[2020-09-23] MEDS ORDERED: PREDNISONE 20 MG TABLET PO SCH (10:00)
[2020-09-23] MEDS: PRENATAL VITAMIN W DHA CAPSULE PO SCH (10:25)
[2020-09-23] MEDS ORDERED: ALBUTEROL SULFATE HFA (90 MCG/PUFF) 8 GM MDI IH PRN (11:58)
--- NOTE | 2020-09-23 12:20 | PDOC DISCHARGE SUMMARY ---
Impression - Admit/DC Date/PCP Admission Date/Primary Care Provider: 09/19/20 16:47 Discharge Date: 09/23/20 - Discharge Diagnosis (1) Reactive airway disease with wheezing with acute exacerbation Is this a current diagnosis for this admission?: Yes (2) Acute bronchitis, bacterial Is this a current diagnosis for this admission?: Yes (3) Is this a current diagnosis for this admission?: Yes (4) Acute hypercapnic respiratory failure Is this a current diagnosis for this admission?: Yes (5) Acute respiratory failure with hypoxia Is this a current diagnosis for this admission?: Yes - Additional Information Resuscitation Status: Full Code Discharge Diet: Regular Discharge Activity: Slowly Increase Activity Referrals: JUDIT WAN MD [ACTIVE STAFF] - Prescriptions: Prednisone [Deltasone 20 mg Tablet] 40 mg PO DAILY 3 Days #6 tablet Vit/Dha [ Multi + Dha Capsule] 1 cap PO DAILY #30 capsule Albuterol Sulfate [Ventolin Hfa 8 gm Mdi] 2 puff IH QIDP PRN #1 inhaler PRN Reason: Home Medications: Albuterol Sulfate [Ventolin Hfa 8 gm Mdi] 2 puff IH QIDP PRN #1 inhaler 09/23/20 Prednisone [Deltasone 20 mg Tablet] 40 mg PO DAILY 3 Days #6 tablet 09/23/20 Vit/Dha [ Multi + Dha Capsule] 1 cap PO DAILY #30 capsule 09/23/20 History of Present Illiness History of Present Illness: According to admitting provider: SARAH DANIELS is a 30 year old female, 8 weeks AOG, she is a current smoker 2-3 cig/day, no prior hx of asthma who came in the ED today due to difficulty of breathing. Patient is on bipap and she is very SOB so history is limited. Apparently her symptoms started 3 days [employer] when she developed productive cough with associated SOB and on and off fever. She said that the SOB will improve when she does pursed breathing. She stated that it is worse breathing in than breathing out. Her SOB got progressively worse hence she came to the ED. She denies any history of asthma or prior asthma attack, she does not have any significant cardiac history either. Her mother has Graves Disease however she does not report any personal history of thyroid problem. The patient has had recent travel to [place] returning 08/27/2020. The patients respiratory status continue to decline resulting in intubtion which was performed in the OR by the anesthesia team due to concerns of epiglotitis. Per the intubating providers cords were normal and edmatous. The patient did have ground galss opacity on chest CT however, her covid 19 was negative. The repeat gas post intubation results remained acidosis with elevated CO2. Critical was consulted for admission and management of this patient. Hospital Course Hospital Course: Patient was admitted to the hospital for acute respiratory distress. On initial presentation she was noted to be having significant wheezing with hypoxia and hypercapnia. She was thought to be in status asthmaticus. She denied any prior diagnosis of asthma. Chest x-ray was clear showed no evidence of pneumonia. COVID-19 test was negative. On initial evaluation most of her wheezing was noted to be in her upper airway. CT soft tissue was subsequently obtained of the neck which was normal. She was intubated due to respiratory failure. From signout received from immersion metalcleaner, no upper airway obstruction/masses or vocal fold abnormalities were noted. Sputum aspirate did grow MSSA. Patient received antibiotics with ceftriaxone and azithromycin which she is completed. It is likely that she had acute bacterial tracheobronchitis with reactive bronchospasms. She was treated with steroids and duo nebs. She was noted to be and she stated she found out 3 days prior to hospitalization. OB was consulted and helped on OB ultrasound which shows live intrauterine dated 6 weeks 3 days. Patient has been initiated on supplements. OB ultrasound was repeated yesterday night due to notable small amount of blood clot after the Hines was removed. Is likely this was from her bladder. She has been seen by OB this morning. I did speak to education faculty member on-call who has cleared patient for discharge in terms of her and recommend follow-up in the clinic in 1 week. I will discharge patient on prednisone and an albuterol inhaler. Patient was adamant that she wants to leave the hospital today and is quite frankly stable at this point. We did ambulate her off oxygen and on room air. On room air, her pulse ox was 97 to 98% and on ambulation she never desaturated below 94%. Physical Exam Vital Signs: Temp Pulse Resp BP Pulse Ox 98.5 F 97 18 131/85 H 97 09/23/20 08:41 09/23/20 08:07 09/23/20 08:07 09/23/20 07:37 09/23/20 08:07 Intake & Output 09/22/20 09/23/20 09/24/20 06:59 06:59 06:59 Intake Total 2558 1558 Output Total 3301 175 Balance -747 1383 Weight 92.2 kg 90 kg General appearance: PRESENT: no acute distress, cooperative Neck exam: ABSENT: JVD Respiratory exam: PRESENT: symmetrical, unlabored, wheezes - very minimal end expiratory. ABSENT: accessory muscle use, retraction, tachypnea Cardiovascular exam: PRESENT: RRR, +S1, +S2. ABSENT: tachycardia Extremities exam: ABSENT: calf tenderness Results Laboratory Results: WBC 29.8 10^3/uL (4.0-10.5) H 09/22/20 04:11 RBC 4.11 10^6/uL (3.72-5.28) 09/22/20 04:11 Hgb 12.2 g/dL (12.0-15.5) 09/22/20 04:11 Hct 36.8 % (36.0-47.0) 09/22/20 04:11 MCV 89 fl (80-97) 09/22/20 04:11 MCH 29.6 pg (27.0-33.4) 09/22/20 04:11 MCHC 33.1 g/dL (32.0-36.0) 09/22/20 04:11 RDW 13.7 % (11.5-14.0) 09/22/20 04:11 Plt Count 299 10^3/uL (150-450) 09/22/20 04:11 Lymph % (Auto) Not Reportable 09/21/20 08:18 [place] % (Auto) Not Reportable 09/21/20 08:18 Eos % (Auto) Not Reportable 09/21/20 08:18 Baso % (Auto) Not Reportable 09/21/20 08:18 Absolute Neuts (auto) Not Reportable 09/21/20 08:18 Absolute Lymphs (auto) Not Reportable 09/21/20 08:18 Absolute Monos (auto) Not Reportable 09/21/20 08:18 Absolute Eos (auto) Not Reportable 09/21/20 08:18 Absolute Basos (auto) Not Reportable 09/21/20 08:18 Total Counted 100 09/21/20 08:18 Seg Neutrophils % Not Reportable 09/21/20 08:18 Seg Neuts % (Manual) 91 % (42-78) H 09/21/20 08:18 Lymphocytes % (Manual) 6 % (13-45) L 09/21/20 08:18 Monocytes % (Manual) 3 % (3-13) 09/21/20 08:18 Eosinophils % (Manual) 0 % (0-6) 09/21/20 08:18 Basophils % (Manual) 0 % (0-2) 09/21/20 08:18 Abs Neuts (Manual) 16.6 10^3/uL (1.7-8.2) H 09/21/20 08:18 Abs Lymphs (Manual) 1.1 10^3/uL (0.5-4.7) 09/21/20 08:18 Abs Monocytes (Manual) 0.5 10^3/uL (0.1-1.4) 09/21/20 08:18 Absolute Eos (Manual) 0.0 10^3/uL (0.0-0.6) 09/21/20 08:18 Abs Basophils (Manual) 0.0 10^3/uL (0.0-0.2) 09/21/20 08:18 Toxic Granulation SLIGHT 09/20/20 02:45 Platelet Comment ADEQUATE 09/21/20 08:18 Polychromasia SLIGHT 09/20/20 02:45 Poikilocytosis SLIGHT 09/20/20 02:45 Tear Drop Cells SLIGHT 09/20/20 02:45 Ovalocytes SLIGHT 09/20/20 02:45 RBC Morph Comment NORMO-CYTIC/CHROMIC 09/21/20 08:18 PT 13.9 SEC (11.4-15.4) 09/21/20 08:18 INR 1.05 09/21/20 08:18 D-Dimer < 0.27 ug/mL (0.00-0.50) 09/19/20 12:08 Carbonic Acid 1.35 mmol/L (1.05-1.35) 09/21/20 03:40 HCO3/H2CO3 Ratio 19:1 09/21/20 03:40 ABG pH 7.39 (7.35-7.45) 09/21/20 03:40 ABG pCO2 44.9 mmHg (35-45) 09/21/20 03:40 ABG pO2 70.1 mmHg (80-100) L 09/21/20 03:40 ABG HCO3 26.8 mmol/L (20-24) H 09/21/20 03:40 ABG Total CO2 28.1 mmol/L (21-25) H 09/21/20 03:40 ABG O2 Saturation 93.9 % (94-98) L 09/21/20 03:40 ABG Base Excess 1.4 mmol/L 09/21/20 03:40 FiO2 55% 09/21/20 03:40 Sodium 139.4 mmol/L (137-145) 09/22/20 04:11 Potassium 4.1 mmol/L (3.6-5.0) 09/22/20 04:11 Chloride 104 mmol/L (98-107) 09/22/20 04:11 Carbon Dioxide 30 mmol/L (22-30) 09/22/20 04:11 Anion Gap 5 (5-19) 09/22/20 04:11 BUN 15 mg/dL (7-20) 09/22/20 04:11 Creatinine 0.64 mg/dL (0.52-1.25) 09/22/20 04:11 Est GFR ( Amer) > 60 (>60) 09/22/20 04:11 Est GFR (MDRD) Non-Af > 60 (>60) 09/22/20 04:11 Glucose 136 mg/dL (75-110) H 09/22/20 04:11 POC Glucose 121 mg/dL (70-110) H 09/21/20 23:20 Calcium 9.3 mg/dL (8.4-10.2) 09/22/20 04:11 Phosphorus 4.0 mg/dL (2.5-4.5) 09/22/20 04:11 Magnesium 1.8 mg/dL (1.6-2.3) 09/22/20 04:11 Total Bilirubin 0.4 mg/dL (0.2-1.3) 09/21/20 08:18 Direct Bilirubin 0.3 mg/dL (0.0-0.4) 09/21/20 08:18 Neonat Total Bilirubin Not Reportable 09/21/20 08:18 Neonat Direct Bilirubin Not Reportable 09/21/20 08:18 Neonat Indirect Bili Not Reportable 09/21/20 08:18 AST 22 U/L (14-36) 09/21/20 08:18 ALT 16 U/L (<35) 09/21/20 08:18 Alkaline Phosphatase 61 U/L (38-126) 09/21/20 08:18 Troponin I < 0.012 ng/mL 09/20/20 15:33 C-Reactive Protein 59.1 mg/L (<10.0) H 09/19/20 12:08 NT-Pro-B Natriuret Pep 111 pg/mL (<125) 09/21/20 08:18 Total Protein 6.0 g/dL (6.3-8.2) L 09/21/20 08:18 Albumin 3.4 g/dL (3.5-5.0) L 09/21/20 08:18 Triglycerides 212 mg/dL (<150) H 09/21/20 08:18 Cholesterol 124.20 mg/dL (0-200) 09/21/20 08:18 LDL Cholesterol Direct 76 mg/dL (<100) 09/21/20 08:18 VLDL Cholesterol 42.4 mg/dL (10-31) H 09/21/20 08:18 HDL Cholesterol 30 mg/dL (>40) L 09/21/20 08:18 TSH 0.08 uIU/mL (0.47-4.68) L 09/21/20 08:18 Free T4 1.30 ng/dL (0.78-2.19) 09/21/20 08:18 Beta HCG, Quant 20705.00 mIU/mL (0.0-6.15) H 09/19/20 12:08 Total Beta HCG POSITIVE (NEGATIVE) 09/19/20 12:08 Urine Color YELLOW 09/20/20 04:45 Urine Appearance CLEAR 09/20/20 04:45 Urine pH 5.0 (5.0-9.0) 09/20/20 04:45 Ur Specific [place] 1.028 09/20/20 04:45 Urine Protein 30 mg/dL (NEGATIVE) H 09/20/20 04:45 Urine Glucose (UA) 50 mg/dL (NEGATIVE) H 09/20/20 04:45 Urine Ketones NEGATIVE mg/dL (NEGATIVE) 09/20/20 04:45 Urine Blood SMALL (NEGATIVE) H 09/20/20 04:45 Urine Nitrite NEGATIVE (NEGATIVE) 09/20/20 04:45 Urine Bilirubin NEGATIVE (NEGATIVE) 09/20/20 04:45 Urine Urobilinogen 2.0 mg/dL (<2.0) H 09/20/20 04:45 Ur Leukocyte Esterase NEGATIVE (NEGATIVE) 09/20/20 04:45 Urine WBC (Auto) 3 /HPF 09/20/20 04:45 Urine RBC (Auto) 43 /HPF 09/20/20 04:45 U Hyaline Cast (Auto) 1 /LPF 09/19/20 22:20 Squamous Epi Cells Auto <1 /HPF 09/20/20 04:45 Urine Mucus (Auto) FEW /LPF 09/20/20 04:45 Urine Ascorbic Acid 20 (NEGATIVE) H 09/20/20 04:45 [place] Human Metapneumo PCR Cancelled 09/19/20 14:27 Urine Opiates Screen NEGATIVE 09/19/20 22:20 Urine Methadone Screen NEGATIVE 09/19/20 22:20 Ur Barbiturates Screen NEGATIVE 09/19/20 22:20 Ur Phencyclidine Scrn NEGATIVE 09/19/20 22:20 Ur Amphetamines Screen NEGATIVE 09/19/20 22:20 U Benzodiazepines Scrn UNCONFIRMED POSITIVE 09/19/20 22:20 Urine Cocaine Screen UNCONFIRMED POSITIVE 09/19/20 22:20 U Marijuana (THC) Screen UNCONFIRMED POSITIVE 09/19/20 22:20 Adenovirus (PCR) Cancelled 09/19/20 14:27 B. pertussis DNA (PCR) Cancelled 09/19/20 14:27 B.parapertussis DNA PCR Cancelled 09/19/20 14:27 C. pneumoniae DNA (PCR) Cancelled 09/19/20 14:27 Coronavirus OC43 (PCR) Cancelled 09/19/20 14:27 Coronavirus HKU1 (PCR) Cancelled 09/19/20 14:27 Coronavirus 229E (PCR) Cancelled 09/19/20 14:27 Coronavirus NL63 (PCR) Cancelled 09/19/20 14:27 Influenza A (H1) PCR Cancelled 09/19/20 14:27 Influ A (H1N1/09) PCR Cancelled 09/19/20 14:27 Influenza A (H3) PCR Cancelled 09/19/20 14:27 Influenza Type A (PCR) Cancelled 09/19/20 14:27 Influenza Type B (PCR) Cancelled 09/19/20 14:27 M. pneumoniae (PCR) Cancelled 09/19/20 14:27 Parainfluenza 1 (PCR) Cancelled 09/19/20 14:27 Parainfluenza 2 (PCR) Cancelled 09/19/20 14:27 Parainfluenza 3 (PCR) Cancelled 09/19/20 14:27 Parainfluenza 4 (PCR) Cancelled 09/19/20 14:27 RSV (PCR) Cancelled 09/19/20 14:27 Entero/Rhino (PCR) Cancelled 09/19/20 14:27 SARS-CoV-2 (PCR) Cancelled 09/19/20 14:27 09/19/20 09/20/20 09/20/20 12:08 02:45 02:45 Troponin I < 0.012 < 0.012 NT-Pro-B Natriuret Pep 333 H 09/20/20 09/20/20 09/21/20 08:43 15:33 08:18 Troponin I < 0.012 < 0.012 NT-Pro-B Natriuret Pep 111 Impressions: Soft Tissue Neck CT 09/19/20 00:00 IMPRESSION: No acute finding in the neck. Study slightly limited by lack of contrast. Chest X-Ray 09/19/20 11:20 IMPRESSION: NO ACUTE RADIOGRAPHIC FINDING IN THE CHEST. Chest/Abdomen CTA 09/19/20 17:34 IMPRESSION: 1. There are very faintly defined ground-glass infiltrates in each lung. Cannot exclude an atypical infectious/ inflammatory process. 2. There is no pulmonary embolus. There is no aortic aneurysm or dissection. Chest X-Ray 09/19/20 21:35 IMPRESSION: Intubated Enteric tube tip in the stomach Obstetrics Ultrasound 09/20/20 00:00 IMPRESSION: LIVING INTRAUTERINE . EGA 6 WEEK 3 DAY. Trimester of : First trimester - 0 to 13 weeks. Chest X-Ray 09/21/20 00:00 IMPRESSION: Minimal left basilar airspace disease. Endotracheal tube, nasogastric tube in good positioning Obstetrics Ultrasound 09/22/20 00:00 IMPRESSION: Live early intrauterine gestation. Plan Time Spent: Less than 30 Minutes Stroke Is this a Stroke Patient?: No Acute Heart Failure Is this a Heart Failure Patient?: No
== END 2020-09-23 13:49 | disposition home or self-care (01) | DRG 831 ==
LOC: ER 10:40 → EH 16:47 → ICU 09-20 04:13 → 3W 09-22 13:18
PROVIDERS: ADMIT Anesthesiology; ATTEND Anesthesiology
PROC: 0BH17EZ Insertion of Endotracheal Airway into Trachea, Via Natural or Artificial Opening (ICD-10-PCS; 2020-09-19)
PROC: 5A09357 Assistance with Respiratory Ventilation, Less than 24 Consecutive Hours, Continuous Positive Airway Pressure (ICD-10-PCS; 2020-09-19)
PROC: 5A1945Z Respiratory Ventilation, 24-96 Consecutive Hours (ICD-10-PCS; principal; 2020-09-19 20:40)
DX: O99.511 Diseases of the respiratory system complicating pregnancy, first trimester (principal); J96.02 Acute respiratory failure with hypercapnia; J96.01 Acute respiratory failure with hypoxia; J45.52 Severe persistent asthma with status asthmaticus; J05.10 Acute epiglottitis without obstruction; Z20.822 Contact with and (suspected) exposure to COVID-19; J20.9 Acute bronchitis, unspecified; O99.333 Smoking (tobacco) complicating pregnancy, third trimester; F17.210 Nicotine dependence, cigarettes, uncomplicated; Z3A.08 8 weeks gestation of pregnancy
CPT/HCPCS: 320; 36415; 36600; 70490; 71045; 71275; 76801; 80048; 80053; 80061; 80307; 81001; 82785; 82803; 82962; 83735; 83880; 84100; 84439; 84443; 84484; 84702; 85025; 85027; 85379; 85610; 86140; 87040; 87070; 87077; 87186; 87205; 93005; 93010; 93976; 94002; 94003; 94640; 94660; 94799; 96361; 96365; 96375; 99140; 99285; 99291; 0202U; J0295; J0456; J0696; J1200; J1644; J1940; J2060; J2250; J2704; J2920; J2930; J3010; J3475; J3490; J7030; J7040; J7060; J7512; J7613